=== PATIENT | female | born 1940 | race Caucasian/White ===

== ENCOUNTER → 2017-01-13 | Outpatient (CLI) | payer BC ==
[~2017-01-13] MED LIST: ATEN-173 PO; CHOL100010 PO; CHOL2000 PO; CITA20TA9 PO; HYDR-5688 PO; LEVO75TA25 PO; LEVO75TA5 PO; MULTTAB5 PO; POTA1TAB PO; SIMV80TA2 PO; TRAM-10 PO; TRIATAB3 PO; [UNRECOGNIZED DRUG - OTHER]; [UNRECOGNIZED DRUG - OTHER] PO; centrum silver PO
[2017-01-13 13:00] LABS: BASO % 0.9 %; BASO ABS # 0.06 K/uL (0-0.2); COMPLETE YES; EOS % 1.5 %; HEMATOCRIT 44.3 % (37-47); IG% 0.3 %; LYMPH % 21.3 %; LYMPH ABS # 1.42 K/uL (1.2-3.4); MEAN CELL VOLUME 89.1 fL (80-100); MEAN CORPUSCULAR HGB CONC 33.6 g/dl (32-36); MEAN PLATELET VOLUME 10.6 fL (7.4-10.4); MONO % 7.5 %; NEUT % 68.5 %; PLATELET COUNT 264 K/uL (130-400); RED BLOOD COUNT 4.97 M/uL (4.2-5.4); WHITE BLOOD COUNT 6.66 K/uL (4.8-10.8)
[2017-01-13 13:04] LABS: URINE APPEARANCE CLEAR (CLEAR); URINE BILIRUBIN NEG (NEG); URINE COLOR DK YELLOW; URINE EPITHELIAL CELL AUTO >30 /lpf (0-5); URINE NITRITE NEG (NEG); URINE SPECIFIC GRAVITY 1.018 (1.000-1.030); UROBILINOGEN NEG (NEG); ZZUR CULT IF INDIC CLEAN CATCH NO
[2017-01-13 13:07] LABS: MANUAL MICROSCOPIC REQUIRED? NO; REVIEW REQ? NO
[2017-01-13 13:13] LABS: ALB/GLOB RATIO 1.3 (0.9-2); ALT/SGPT 25 U/L (12-78); AST/SGOT 26 U/L (15-37); BLOOD UREA NITROGEN 25 mg/dl (7-18); BUN/CREATININE RATIO 36.6 (10-20); CALCIUM 11.4 mg/dl (8.5-10.1); CARBON DIOXIDE 29 mmol/L (21-32); CHLORIDE 104 mmol/L (98-107); CHOLESTEROL 185 mg/dl (0-200); CREATININE 0.68 mg/dl (0.60-1.20); GLUCOSE 110 mg/dl (70-99); POTASSIUM 4.5 mmol/L (3.5-5.1); SODIUM 140 mmol/L (136-145)
[2017-01-13 13:23] LABS: ALKALINE PHOSPHATASE 72 U/L (45-117); CHOLESTEROL/HDL RATIO 2.6; HDL CHOLESTEROL 72 mg/dl; LDL CHOLESTEROL CALCULATED 87 mg/dl; TRIGLYCERIDES 131 mg/dl (0-150); VERY LOW DENSITY LIPOPROT CALC 26 mg/dl
[2017-01-13 13:33] LABS: ESTIMATED AVERAGE GLUCOSE 131 mg/dl; HA1C FLAG Normal (Normal)
--- NOTE | 2017-01-19 14:08 | CODING QUERY MEDICAL NECESSITY ---
SUPPORTING DIAGNOSIS NEEDED A supporting diagnosis is required for the test/procedure performed on this patient in order for us to be reimbursed by the patient's insurance. Please provide a supporting diagnosis for the following test/procedure listed below next to the test name along with your signature. *If there is no additional diagnosis for this patient that would support the following test/procedure please document that below next to the test/procedure. Test(s)/Procedure(s) that require a supporting diagnosis: * VITAMIN D 25-HYDROXY DIAGNOSIS: * DOS: 01/13/17 Provider Signature: Date: Thank you Laure Cruz Health Information Management Once completed, please kindly fax back to [phone] For questions please call [phone]
== END | disposition home or self-care (01) ==
LOC: C.LABBFT 08:55
PROVIDERS: ATTEND Internal Medicine
DX: E78.5 Hyperlipidemia, unspecified (principal); E03.9 Hypothyroidism, unspecified; R73.01 Impaired fasting glucose; M85.80 Other specified disorders of bone density and structure, unspecified site

== ENCOUNTER → 2017-01-19 | Outpatient (CLI) | payer BC | END | disposition home or self-care (01) | LOC: C.LABBFT 14:19 | PROVIDERS: ATTEND Physician Assistant Medical | DX: E21.3 Hyperparathyroidism, unspecified (principal) ==

== ENCOUNTER → 2017-05-26 | Outpatient (CLI) | payer BC ==
--- NOTE | 2017-05-27 07:44 | MAMMOGRAPHY REPORT ---
BILATERAL DIGITAL SCREENING MAMMOGRAM TOMOSYNTHESIS WITH CAD: 05/26/2017 CLINICAL HISTORY: Routine screening. Patient has no complaints. TECHNIQUE: Breast tomosynthesis in addition to standard 2D mammography was performed. Current study was also evaluated with a Computer Aided Detection (CAD) system. COMPARISON: Comparison is made to exams dated: 10/26/2015 ultrasound biopsy, 10/26/2015 mammogram, 10/17 ultrasound, 10/17/2015 mammogram, 10/03/2015 mammogram, and 09/28/2014 mammogram - [facility]. BREAST COMPOSITION: The tissue of both breasts is almost entirely fatty. FINDINGS: There is a stable metallic biopsy marker in the far posterior right breast, only seen on t he MLO view. No new suspicious mass, architectural distortion or cluster of microcalcifications is s een. IMPRESSION: ACR BI-RADS CATEGORY 1: NEGATIVE There is no mammographic evidence of malignancy. A 1 year screening mammogram is recommended. The pa tient will receive written notification of the results. Approximately 10% of breast cancers are not detected with mammography. A negative mammographic report should not delay biopsy if a clinically suggestive mass is present. Cyndee Bernal M.D. ay/:05/26/2017 18:26:45 Kitchen Manager: Colleen Cohen, [facility] letter sent: Normal 1/2 BI-RADS Code: ACR BI-RADS Category 1: Negative
== END | disposition home or self-care (01) ==
LOC: C.MAMM 12:53
PROVIDERS: ATTEND Obstetrics & Gynecology
DX: Z12.31 Encounter for screening mammogram for malignant neoplasm of breast (principal)

== ENCOUNTER 2017-06-13 11:26 | Emergency (ER) | payer BC ==
[~2017-06-13] VITALS: Ht 157.5 cm; Wt 84.0 kg
[2017-06-13] VITALS (14 sets, daily range): BP systolic 115–160; BP diastolic 69–102; PULSE 61–81; TEMP 36.5–36.6; O2SAT 91–100; Ht 157.5 cm; Wt 84.0 kg
[~2017-06-13 11:26] MED LIST changes: -CHOL2000 PO; -HYDR-5688 PO; -LEVO75TA5 PO; -MULTTAB5 PO; -POTA1TAB PO
[2017-06-13] MEDS ORDERED: HYDROmorphone INJ 0.5 MG/0.5 ML SYR IV STA (11:36)
[2017-06-13] MEDS ORDERED: ONDANSETRON INJ 2 MG/ML 2 ML VIAL IV STA (11:36)
[2017-06-13] MEDS ORDERED: MoRPHine SULFATE 10 MG/ML CARP/VIAL ONE (11:39)
[2017-06-13] MEDS ORDERED: ONDANSETRON INJ 2 MG/ML 2 ML VIAL ONE (11:40)
--- NOTE | 2017-06-13 11:51 | EMERGENCY ROOM VISIT NOTE ---
ED Visit Note First contact with patient: 11:31 The patient was seen and examined with Shanna Patterson PA-C. I agree with the history, physical and findings. Please see the note for disposition and details. The patient has a right elbow dislocation. I did discuss the case with orthopedics, Dr Johnson. Sedation was necessary as this is a [place] joint. Risks and benefits discussed. The patient had a meal yesterday. She had her last oral intake of fluids 6 hours ago. Reduction by orthopedics. I gave my usual and customary discussion regarding this issue. PROCEDURAL SEDATION: Indication: A [place] elbow dislocation Written consent was obtained after the risks and benefits were explained, including but not limited to allergic reaction, aspiration, airway obstruction, laryngospasm, cardiorespiratory arrest, infection, and hypotension. At this time , the risks of the procedure are less than the risks of NOT performing the procedure. A time out was taken and the correct patient and site identified. The patient was on 100% via NRB prior to the procedure. Suction, airway equipment, RSI drugs, respiratory equipment, and appropriate personnel were prepared prior to the initiation of the procedure. Sedation was achieved utilizing propofol. The patient received a 40 mg bolus and then 4 incremental doses of 10 mg. The main procedure was performed successfully. See nursing notes for dosages and times. There were no complications and the patient recovered uneventfully from the procedure.
[2017-06-13] MEDS ORDERED: POTA1TAB PO (12:00)
[2017-06-13] MEDS ORDERED: MULTTAB5 PO (12:00)
[2017-06-13] MEDS ORDERED: CHOL2000 PO (12:00)
[2017-06-13] MEDS ORDERED: LEVO75TA5 PO (12:00)
[2017-06-13] MEDS ORDERED: HYDROmorphone INJ 1 MG/ML SYR IV STA (12:20)
--- NOTE | 2017-06-13 12:42 | DIAGNOSTIC IMAGING REPORT ---
RIGHT ELBOW 2 VIEWS CLINICAL HISTORY: 76 years-old Female presenting with RIGHT, EVAL FX VS DISLOCATION Right. TECHNIQUE: Frontal and lateral views of the right elbow were obtained. COMPARISON: None. FINDINGS: Evidence of complete dislocation of the elbow joint with posterior and lateral displacement of the olecranon relative to the humeral condyles. Faint ossific fragment adjacent to the radial head may suggest fracture fragment. This may arise from the lateral humeral condyle or epicondyle. Significant regional soft tissue swelling. IMPRESSION: Fracture dislocation of the right elbow. Suspected small fracture fragment arising from the lateral humeral condyle or epicondyle would be better appreciated on CT. Electronically signed by: Jimmie Mccoy M.D. 06/13/2017 12:40 PM Dictated Date/Time: 06/13/2017 12:39 PM
[2017-06-13] MEDS ORDERED: PROPOFOL IV EMULSION 10 MG/ML 20 ML VIAL IV STA (12:55)
--- NOTE | 2017-06-13 13:05 | EMERGENCY ROOM VISIT NOTE ---
Pre-Mod Sedation Assessment General Date of Moderate Sedation: Jun 13, 2017. Vital Signs: Vital Signs Past 12 Hours Date Time Temp Pulse Resp B/P (MAP) Pulse Ox O2 Delivery O2 Flow Rate FiO2 06/13/17 12:42 36.5 81 18 115/84 93 Nasal Cannula 2.0 06/13/17 11:30 36.7 83 18 158/78 100 Room Air Review Cardiovascular: regular rate, rhythm, no edema, no murmur Abdomen: non tender, soft Lungs: lungs clear Pre-Sedation Airway Assessment Oral Cavity: WNL Short Thick Neck: No Hx of Sleep Apnea: Yes Smoking Status: Current Every Day Smoker Mallampati Classification: Class III ASA Classification: Class III Procedure Planning Contraindications-for Mod Sed: None Yes Notes The planned sedation has been discussed with the patient and consent obtained. I have identified the patient, determined the appropriateness of sedation and have assessed the patient immediately prior to the procedure. All medicine(s) and interventions are by my order.
--- NOTE | 2017-06-13 13:54 | DIAGNOSTIC IMAGING REPORT ---
RIGHT ELBOW 2 VIEWS CLINICAL HISTORY: 76 years-old Female presenting with s/p reduction Right. TECHNIQUE: Frontal and lateral views of the right elbow were obtained. COMPARISON: Plain radiographs performed earlier the same day. FINDINGS: Interval reduction of the previous dislocated elbow joint. Normal anatomic alignment has been restored. A tiny ossific fragment is noted immediately distal to the medial epicondyle. The previously noted ossific fragment proximal to the radial head is not apparent. Elbow joint effusion noted. IMPRESSION: Interval reduction of the dislocated elbow. Tiny osseous fragment distal to the lateral epicondyle raises concern for small avulsion fracture. Again, cross-sectional imaging would better demonstrate this. Electronically signed by: Jimmie Mccoy M.D. 06/13/2017 1:52 PM Dictated Date/Time: 06/13/2017 1:51 PM
[2017-06-13] MEDS ORDERED: HYDR-5688 PO (14:01)
--- NOTE | 2017-06-13 14:02 | EMERGENCY ROOM VISIT NOTE ---
ED Visit Note First contact with patient: 11:31 CHIEF COMPLAINT: Right elbow injury 2 hours ago HISTORY OF PRESENT ILLNESS: Patient is a [id number] 76-year-old white female brought to the emergency department by [facility] for evaluation of a right elbow injury. She sustained a mechanical fall in her backyard about 2 hours ago when she tripped over a swing and fell. She tried to catch herself, and had immediate onset of pain and deformity in the right elbow. She has been splinted with the arm extended above her head. She received morphine 10 mg IV en route, with some relief of her pain. She did not strike her head or lose consciousness. She denies any other injuries. She presently rates her pain a 5 /10. She reports that her right hand and fingers feel cold and tingly. She still able to wiggle and move her fingers. REVIEW OF SYSTEMS: Review of systems as per HPI. All other systems reviewed were negative. 10 systems reviewed. PMH: Electronic medical records are reviewed and summarized as above/below. See Problem List. SOCIAL HISTORY: Patient lives at home. Smoker. PHYSICAL EXAM: Vital Signs: Reviewed nurse's notes. CONSTITUTIONAL: Patient is a pleasant, obviously uncomfortable 76-year-old white female who is awake and alert and in moderate distress due to her stated complaint. HEART: Regular rate and rhythm. LUNGS: Clear to auscultation. MUSCULOSKELETAL: Examination of the right upper extremity show an obvious deformity at the right elbow. The arm has been splinted in extension, with the arm flexed above her head. Radial and ulnar pulses are easily palpable. Capillary refills less than 2 seconds. There is a minor superficial abrasion on the dorsal aspect of the wrist, but the wrist is nontender to palpation. There is no anatomic snuffbox tenderness. Any attempts at wrist range of motion causes elbow pain. There is an obvious deformity of the elbow, skin is intact. There is some slight soft tissue swelling and ecchymosis noted. Range of motion of the elbow is not assessed due to the nature of the injury. The upper humerus, shoulder and clavicle are nontender. EMERGENCY DEPARTMENT COURSE: The patient was seen and assessed as above. She was medicated with Zofran 4 mg IV and a total of Dilaudid 1.5 mg IV for pain. Right elbow x-rays were obtained, which confirmed elbow dislocation. Patient was reviewed with Dr. Apodaca, who also independently evaluated her. Orthopedics, Dr. Johnson, was consulted. Close reduction was performed by Dr. Jhonson under conscious sedation performed by Dr. Apodaca. Long arm posterior Ortho-Glass splint and arm sling were applied. Post reduction x-rays confirm reduction of the elbow dislocation. Splint placement was verified by me and was satisfactory. Patient remained neurovascularly intact. Patient was allowed to recover from the conscious sedation per protocol. She was placed in an arm sling. She was reassessed prior to discharge. She rated her arm pain a 2/10. Verbal and written discharge instructions were reviewed with the patient. She will be given a prescription for Veneta for pain. Differential diagnoses entertained included elbow fracture, elbow dislocation, humerus/forearm fracture, and nerve, vascular or tendinous injury, among others. Medication reconciliation: I attest that I have personally reviewed the patient' s current medication list. Blood pressure screening: Patient was found to have a slightly elevated blood pressure due to circumstances. I do not believe that the patient requires hypertension monitoring. Patient was reviewed in the [facility] Prescription Drug Monitoring Program, and there was no record. RIGHT ELBOW 2 VIEWS CLINICAL HISTORY: 76 years-old Female presenting with RIGHT, EVAL FX VS DISLOCATION Right. TECHNIQUE: Frontal and lateral views of the right elbow were obtained. COMPARISON: None. FINDINGS: Evidence of complete dislocation of the elbow joint with posterior and lateral displacement of the olecranon relative to the humeral condyles. Faint ossific fragment adjacent to the radial head may suggest fracture fragment. This may arise from the lateral humeral condyle or epicondyle. Significant regional soft tissue swelling. IMPRESSION: Fracture dislocation of the right elbow. Suspected small fracture fragment arising from the lateral humeral condyle or epicondyle would be better appreciated on CT. RIGHT ELBOW 2 VIEWS CLINICAL HISTORY: 76 years-old Female presenting with s/p reduction Right. TECHNIQUE: Frontal and lateral views of the right elbow were obtained. COMPARISON: Plain radiographs performed earlier the same day. FINDINGS: Interval reduction of the previous dislocated elbow joint. Normal anatomic alignment has been restored. A tiny ossific fragment is noted immediately distal to the medial epicondyle. The previously noted ossific fragment proximal to the radial head is not apparent. Elbow joint effusion noted. IMPRESSION: Interval reduction of the dislocated elbow. Tiny osseous fragment distal to the lateral epicondyle raises concern for small avulsion fracture. Again, cross-sectional imaging would better demonstrate this. Problem List Medical Problems: (1) Anxiety State Nos Status: Chronic (2) Depressive Disorder Nec Status: Chronic (3) Hyperlipidemia, Unspecified Status: Chronic (4) Hypertension Nos Status: Chronic (5) Hypothyroidism, Unspecified Status: Chronic Surgical Problems: (1) Hip Joint Replacement Status Status: Resolved Current/Historical Medications Scheduled Atenolol (Tenormin), 25 MG PO QAM Cholecalciferol (Vitamin D3), 4,000 UNITS PO DAILY Citalopram Hydrobromide (Celexa), 20 MG PO QAM Levothyroxine Sodium (Levothyroxine Sodium), 75 MCG PO DAILY Multiple Vitamins W/ Minerals (Centrum), 1 TAB PO DAILY Potassium Gluconate (Potassium Gluconate), 1 TAB PO DAILY Simvastatin (Zocor), 80 MG PO QPM Triamterene/Hctz (Triamterene/Hctz 37.5-25MG), 1 TAB PO QAM Scheduled PRN Hydrocodone/Acetaminophen 5MG/325MG ([place] 5MG/325MG), 1-2 TABLETS PO Q4 PRN for Pain Allergies Coded Allergies: Adhesives (Verified Allergy, Unknown, ITCHY,RED SKIN WITH RASH, 06/27/13) Lactose Intolerance (Verified Allergy, Unknown, diarrhea, 06/27/13) Penicillin V (Verified Allergy, Unknown, HIVES, 04/26/13) Vital Signs Date Time Temp Pulse Resp B/P (MAP) Pulse Ox O2 Delivery O2 Flow Rate FiO2 06/13/17 15:01 131/88 06/13/17 14:58 70 18 137/80 94 Room Air 06/13/17 14:56 81 15 86 06/13/17 14:52 73 06/13/17 14:46 137/80 06/13/17 14:32 103/72 06/13/17 14:31 49/30 06/13/17 14:30 36.6 71 18 130/81 92 Room Air 06/13/17 14:26 72 15 145/79 06/13/17 14:21 145/83 06/13/17 14:16 141/84 06/13/17 14:15 36.5 75 18 141/84 91 Room Air 2.0 06/13/17 14:11 145/82 06/13/17 14:06 143/78 06/13/17 14:01 137/82 06/13/17 14:00 36.5 74 18 137/82 92 Room Air 06/13/17 13:57 141/81 06/13/17 13:56 79 10 84 06/13/17 13:51 158/75 06/13/17 13:50 36.5 73 18 158/75 93 Nasal Cannula 06/13/17 13:47 153/71 06/13/17 13:45 36.6 73 18 153/71 92 Nasal Cannula 06/13/17 13:41 160/78 06/13/17 13:40 36.6 70 17 160/78 100 Nasal Cannula 2.0 06/13/17 13:39 159/69 06/13/17 13:35 36.6 61 18 151/75 100 Nasal Cannula 2.0 06/13/17 13:31 160/74 06/13/17 13:30 71 17 160/74 100 Non-Rebreather 15.0 06/13/17 13:28 139/102 06/13/17 13:26 77 11 100 06/13/17 13:25 74 16 139/102 100 Non-Rebreather 15.0 06/13/17 13:22 80 18 141/69 100 Non-Rebreather 15.0 06/13/17 13:21 141/69 06/13/17 13:20 136/70 06/13/17 13:20 80 18 141/69 98 Non-Rebreather 06/13/17 13:00 100 Nasal Cannula 2.0 06/13/17 12:56 83 25 95 06/13/17 12:45 115/84 06/13/17 12:26 81 98 06/13/17 11:37 158/78 06/13/17 11:30 36.7 83 18 158/78 100 Room Air Medications Administered Medications (Trade) Dose Ordered Sig/Terrence Route Start Time Stop Time Status Last Admin Dose Admin Hydromorphone HCl (Dilaudid Inj) 0.5 mg NOW STAT IV 06/13/17 11:36 06/13/17 11:38 DC 06/13/17 11:45 0.5 MG Ondansetron HCl (Zofran Inj) 4 mg NOW STAT IV 8/26/17 11:36 06/13/17 11:38 DC 06/13/17 11:44 4 MG Hydromorphone HCl (Dilaudid Inj) 1 mg NOW STAT IV 06/13/17 12:20 06/13/17 12:21 DC 06/13/17 12:32 1 MG Departure Information Impression Primary Impression: Dislocation of right elbow Prescriptions Hydrocodone/Acetaminophen 5MG/325MG (Veneta 5MG/325MG) Tab 1-2 TABLETS PO Q4 Y for Pain, #30 TAB For Initial Treatment Prov: Denise Weber PA 06/13/17 Referrals Linus Hunt M.D. (PCP) Jimmie Johnson M.D. Patient Instructions [facility] Additional Instructions DO NOT drive, drink alcohol, operate machinery, or perform dangerous activities today. You were given medications in the ER that can affect your ability to safely function or operate a vehicle. Hydrocodone/Acetaminophen (Veneta) 5/325 mg: Take 1-2 pills every four hours for breakthrough pain. Avoid alcohol, operating machinery or dangerous equipment, working on ladders or roofs, DRIVING, or situations where being under the influence may be dangerous. It is recommended to use an bkve-uph-cejmhgf stool softener such as Colace, 100mg twice daily while taking this medication to avoid constipation. Ibuprofen(Motrin, Advil) may be used for fever or pain. Use 600mg every six hours as needed. Take with food. Avoid using more than 2400mg in a 24 hour period. Do not use 2400mg per day for more than three consecutive days without physician direction. Prolonged inappropriate use can lead to stomach upset or ulcers. This medication can be taken if you need to drive, work, or perform activities which may be dangerous when taking narcotic pain medication. (AND/OR) Acetaminophen(Tylenol) may be used for fever or pain. Use 1000mg every six hours as needed. Avoid using more than 3000mg in a 24 hour period. This medication can be taken if you need to drive, work, or perform activities which may be dangerous when taking narcotic pain medication. Ice compresses for 20 minutes at a time four times daily for 2-3 days. Use the sling as instructed. Remove your arm from the sling 4-6 times a day and move all the joints around to keep them loose. Rest and elevate your injury. Do not get the splint wet. If your splint feels excessively tight, you have worsening pain, develop numbness or tingling, or your digits appear blue, loosen the brant wrap. Then reapply the brant wrap gently without removing the splint. If your symptoms are not quickly relieved return to the ER for re- evaluation. Continue current medications. Return to the ER immediately for any numbness, tingling, severe pain, extreme swelling in the extremity or as needed. Call [facility] on Thursday to arrange follow up appointment in one week. Problem Qualifiers Primary Impression: Dislocation of right elbow Encounter type: initial encounter Qualified Codes: S53.104A - Unspecified dislocation of right ulnohumeral joint, initial encounter
--- NOTE | 2017-06-13 14:40 | Orthopedic Consultation ---
Orthopedic Consultation Date of Consultation: Jun 13, 2017. Attending Physician: Reason for Consultation: R elbow dislocation History of Present Illness 76 yo female who tripped and fell onto R arm. She had immediate pain and deformity to the R elbow. No neurolgic c/o. No previous injury Past Medical/Surgical History Medical Problems: (1) Anxiety State Nos Status: Chronic (2) Depressive Disorder Nec Status: Chronic (3) Dislocation of right elbow Status: Acute (4) Hyperlipidemia, Unspecified Status: Chronic (5) Hypertension Nos Status: Chronic (6) Hypothyroidism, Unspecified Status: Chronic Social History Smoking Status: Current Every Day Smoker Allergies Coded Allergies: Adhesives (Verified Allergy, Unknown, ITCHY,RED SKIN WITH RASH, 06/27/13) Lactose Intolerance (Verified Allergy, Unknown, diarrhea, 06/27/13) Penicillin V (Verified Allergy, Unknown, HIVES, 04/26/13) Home Medications Scheduled Atenolol (Tenormin), 25 MG PO QAM Cholecalciferol (Vitamin D3), 4,000 UNITS PO DAILY Citalopram Hydrobromide (Celexa), 20 MG PO QAM Levothyroxine Sodium (Levothyroxine Sodium), 75 MCG PO DAILY Multiple Vitamins W/ Minerals (Centrum), 1 TAB PO DAILY Potassium Gluconate (Potassium Gluconate), 1 TAB PO DAILY Simvastatin (Zocor), 80 MG PO QPM Triamterene/Hctz (Triamterene/Hctz 37.5-25MG), 1 TAB PO QAM Scheduled PRN Hydrocodone/Acetaminophen 5MG/325MG ([place] 5MG/325MG), 1-2 TABLETS PO Q4 PRN for Pain Review of Systems Musculoskeletal: + joint pain Physical Exam Date Time Temp Pulse Resp B/P (MAP) Pulse Ox O2 Delivery O2 Flow Rate FiO2 06/13/17 14:30 36.6 71 18 130/81 92 Room Air 06/13/17 14:15 36.5 75 18 141/84 91 Room Air 2.0 06/13/17 14:00 36.5 74 18 137/82 92 Room Air 06/13/17 13:50 36.5 73 18 158/75 93 Nasal Cannula 06/13/17 13:45 36.6 73 18 153/71 92 Nasal Cannula 06/13/17 13:40 36.6 70 17 160/78 100 Nasal Cannula 2.0 06/13/17 13:35 36.6 61 18 151/75 100 Nasal Cannula 2.0 06/13/17 13:30 71 17 160/74 100 Non-Rebreather 15.0 06/13/17 13:25 74 16 139/102 100 Non-Rebreather 15.0 06/13/17 13:22 80 18 141/69 100 Non-Rebreather 15.0 06/13/17 13:20 80 18 141/69 98 Non-Rebreather 06/13/17 13:00 100 Nasal Cannula 2.0 06/13/17 11:30 36.7 83 18 158/78 100 Room Air General Appearance: + mild distress Head: normocephalic Eyes: normal inspection Respiratory/Chest: chest non-tender Cardiovascular: regular rate, rhythm Extremities/Musculoskelatal: + swelling, + pertinent finding (Deformity to R elbow with posterior lateral dislocation, swelling, bruising, no open wounds, distally NVI) Assessment & Plan R elbow posterior/lateral dislocation Given moderate sedation per ED staff Elbow reduced, posterior splint placed. F/U 1 week in my office for xrays in splint
--- NOTE | 2017-06-13 15:11 | [facility] Operative Report ---
Operative Report Operative Date Jun 13, 2017. Pre-Operative Diagnosis Right elbow dislocation Post-Operative Diagnosis Same Procedure(s) Performed Closed reduction right elbow Surgeon Dr. MAGALLANES Public Speaking Teacher Surgeon(s) none Estimated Blood Loss none Findings As above Drains none Anesthesia moderate sedation Complication(s) None Disposition ED Indications 76-year-old female who sustained a fall to the right arm. She had a posterior lateral dislocation right elbow. She wishes to proceed with closed reduction. Description of Procedure Risks benefits and alternatives to the procedure were discussed including but not limited to pain, stiffness, fracture, failure to achieve reduction, need for later surgery, damage to blood vessels, damage to nerves, risks of the anesthesia were discussed and they wished to proceed. The patient was identified. The laterality was confirmed. The patient was given sedation. Once they were properly sedated I performed a closed reduction pulling traction and bringing the arm into slight flexion. There was a palpable and audible clunk. The elbow was then able to be more normally ranged. Post reduction x-rays were obtained and demonstrated adequate reduction of the elbow dislocation. I attest to the content of the Intraoperative Record and any orders documented therein. Any exceptions are noted below.
--- NOTE | 2017-06-13 16:55 | EMERGENCY ROOM VISIT NOTE ---
Post-Moderate Sedation Plan General Date of Moderate Sedation Jun 13, 2017. Vital Signs: Vital Signs Past 12 Hours Date Time Temp Pulse Resp B/P (MAP) Pulse Ox O2 Delivery O2 Flow Rate FiO2 06/13/17 15:01 131/88 06/13/17 14:58 70 18 137/80 94 Room Air 06/13/17 14:56 81 15 86 06/13/17 14:52 73 06/13/17 14:46 137/80 06/13/17 14:32 103/72 06/13/17 14:31 49/30 06/13/17 14:30 36.6 71 18 130/81 92 Room Air 06/13/17 14:26 72 15 145/79 06/13/17 14:21 145/83 06/13/17 14:16 141/84 06/13/17 14:15 36.5 75 18 141/84 91 Room Air 2.0 06/13/17 14:11 145/82 06/13/17 14:06 143/78 06/13/17 14:01 137/82 06/13/17 14:00 36.5 74 18 137/82 92 Room Air 06/13/17 13:57 141/81 06/13/17 13:56 79 10 84 06/13/17 13:51 158/75 06/13/17 13:50 36.5 73 18 158/75 93 Nasal Cannula 06/13/17 13:47 153/71 06/13/17 13:45 36.6 73 18 153/71 92 Nasal Cannula 06/13/17 13:41 160/78 06/13/17 13:40 36.6 70 17 160/78 100 Nasal Cannula 2.0 06/13/17 13:39 159/69 06/13/17 13:35 36.6 61 18 151/75 100 Nasal Cannula 2.0 06/13/17 13:31 160/74 06/13/17 13:30 71 17 160/74 100 Non-Rebreather 15.0 06/13/17 13:28 139/102 06/13/17 13:26 77 11 100 06/13/17 13:25 74 16 139/102 100 Non-Rebreather 15.0 06/13/17 13:22 80 18 141/69 100 Non-Rebreather 15.0 06/13/17 13:21 141/69 8/26/17 13:20 136/70 06/13/17 13:20 80 18 141/69 98 Non-Rebreather 06/13/17 13:00 100 Nasal Cannula 2.0 06/13/17 12:56 83 25 95 06/13/17 12:45 115/84 06/13/17 12:26 81 98 06/13/17 11:37 158/78 06/13/17 11:30 36.7 83 18 158/78 100 Room Air Review - Discharge Plan Post Moderate Sedation Plan: On clinical assessment, the patient appears to have tolerated the Procedural sedation without complications. Patient has recovered as anticipated. The patient was monitored by nursing staff in the standard fashion. No issues and she had an uneventful recovery.
== END 2017-06-13 15:32 | disposition home or self-care (01) ==
LOC: C.EDA 11:26 → EDBD 11:26 → C.EDA 15:32
DX: S53.104A Unspecified dislocation of right ulnohumeral joint, initial encounter (principal); W01.0XXA Fall on same level from slipping, tripping and stumbling without subsequent striking against object, initial encounter; Y92.017 Garden or yard in single-family (private) house as the place of occurrence of the external cause; F17.200 Nicotine dependence, unspecified, uncomplicated; S60.811A Abrasion of right wrist, initial encounter; F41.9 Anxiety disorder, unspecified; F32.9 Major depressive disorder, single episode, unspecified; E78.5 Hyperlipidemia, unspecified; I10 Essential (primary) hypertension; E03.9 Hypothyroidism, unspecified; Z96.649 Presence of unspecified artificial hip joint

== ENCOUNTER → 2017-07-21 | Outpatient (CLI) | payer BC ==
[~2017-07-21] MED LIST changes: -CHOL100010 PO; +CHOL2000 PO; +HYDR-5688 PO; -LEVO75TA25 PO; +LEVO75TA5 PO; +MULTTAB5 PO; +POTA1TAB PO; -TRAM-10 PO; -[UNRECOGNIZED DRUG - OTHER]; -[UNRECOGNIZED DRUG - OTHER] PO; -centrum silver PO
[2017-07-21 12:59] LABS: ALT/SGPT 27 U/L (12-78); BLOOD UREA NITROGEN 18 mg/dl (7-18); BUN/CREATININE RATIO 26.1 (10-20); CALCIUM 11.2 mg/dl (8.5-10.1); CARBON DIOXIDE 26 mmol/L (21-32); CHLORIDE 101 mmol/L (98-107); CHOLESTEROL 175 mg/dl (0-200); CREATININE 0.69 mg/dl (0.60-1.20); GLUCOSE 117 mg/dl (70-99); POTASSIUM 4.2 mmol/L (3.5-5.1); SODIUM 137 mmol/L (136-145)
[2017-07-21 13:09] LABS: ALB/GLOB RATIO 1.2 (0.9-2); ALKALINE PHOSPHATASE 78 U/L (45-117); AST/SGOT 27 U/L (15-37); CHOLESTEROL/HDL RATIO 2.5; HDL CHOLESTEROL 69 mg/dl; LDL CHOLESTEROL CALCULATED 80 mg/dl; TRIGLYCERIDES 132 mg/dl (0-150); VERY LOW DENSITY LIPOPROT CALC 26 mg/dl
== END | disposition home or self-care (01) ==
LOC: C.LABBFT 10:24
PROVIDERS: ATTEND Physician Assistant Medical
DX: E78.5 Hyperlipidemia, unspecified (principal); E03.9 Hypothyroidism, unspecified; R73.01 Impaired fasting glucose

== ENCOUNTER → 2017-07-27 | Outpatient (CLI) | payer BC ==
--- NOTE | 2017-07-27 16:04 | DIAGNOSTIC IMAGING REPORT ---
RIGHT UPPER EXTREMITY VENOUS DOPPLER HISTORY: Right arm pain. COMPARISON STUDY: None. FINDINGS: The right internal jugular vein is patent. There is normal flow within the right subclavian vein. There is normal flow and compressibility within the right axillary, basilic, brachial, radial, ulnar, and visualized cephalic veins. IMPRESSION: No DVT within the right upper extremity. Electronically signed by: Sid Hliario M.D. 07/27/2017 4:02 PM Dictated Date/Time: 07/27/2017 4:02 PM
== END | disposition home or self-care (01) ==
LOC: C.ULTR 15:26
PROVIDERS: ATTEND Internal Medicine
DX: M79.603 Pain in arm, unspecified (principal)

== ENCOUNTER → 2017-08-04 | Outpatient (CLI) | payer BC ==
--- NOTE | 2017-08-04 14:12 | DIAGNOSTIC IMAGING REPORT ---
CT LUNG SCREENING, LOW DOSE WITH COMPUTER-AIDED DETECTION (CAD) CLINICAL HISTORY: Smoking history. Lung cancer screening. COMPARISON STUDY: Chest x-ray dated 10/30/2012. Chest CT dated 12/23/2013. CT DOSE: 79.68 mGy.cm TECHNIQUE: Low-dose helical CT was acquired without intravenous contrast from lung apices to bases and reconstructed at 2.5 mm every 2 mm. CAD was utilized for this study. A dose lowering technique was utilized adhering to the principles of ALARA. FINDINGS: Thyroid: Atrophic Thoracic aorta: There is mild atherosclerotic calcification of the thoracic aorta, which is normal in caliber and demonstrates 4- vessel very arch anatomy. Heart: The heart is enlarged and without pericardial effusion. The coronary arteries are densely calcified. Lungs and pleural spaces: Emphysematous change is noted and there is biapical scarring. No airspace consolidation or pleural effusion is identified. The trachea and central airways are clear. There are scattered calcified granulomas. A 4 mm focus of nodular pleural thickening in the right middle lobe along the minor fissure is seen on image #138. This is unchanged from 2014 and of doubtful significance. No concerning pulmonary lesion is seen. Mediastinum: There is no mediastinal lymphadenopathy. Jenna: Not well assessed without IV contrast. Axilla: Clear. Upper abdomen: Partially visualized upper abdominal viscera is within normal limits. Skeletal structures: The skeletal structures are osteopenic. Degenerative change and mild hyperkyphosis are noted in the thoracic spine. There are no lytic or blastic osseous lesions. IMPRESSION: 1. Cardiomegaly and emphysema. 2. There is no airspace consolidation or pleural effusion. 3. No concerning pulmonary lesion is identified. 4. A perifissural nodule in the right middle lobe measures 4 mm and has been present dating back to 2013. This is of doubtful significance. Nodule 1 Category: 2 Nodule 1 Status: Baseline Nodule 1 Description: Perifissural Nodule 1 Lesion ID: 1 Nodule 1 Slice Number: 70 Nodule 1 Volume (mm3): 42 Nodule 1 Major [place] mm: 5.8 Nodule 1 Minor [place] mm: 3.5 CAD FINDINGS: Overall Lung RADS Category: 2 Lung RADS Management Recommendation: Lung-RADS 2: Continue annual screening in 12 months. Lung RADS Follow Up Date: 2018-08-04 Lung RADS Nodule ID: 1 Electronically signed by: Andrew Edmond M.D. 08/04/2017 2:11 PM Dictated Date/Time: 08/04/2017 1:59 PM
== END | disposition home or self-care (01) ==
LOC: C.CTS 13:46
PROVIDERS: ATTEND Internal Medicine
DX: Z87.891 Personal history of nicotine dependence (principal); I51.7 Cardiomegaly; J43.9 Emphysema, unspecified; R91.1 Solitary pulmonary nodule

== ENCOUNTER → 2017-09-14 | Outpatient (CLI) | payer BC ==
[2017-09-14 11:05] LABS: CALCIUM URINE 20.8 mg/dl; CREATININE, URINE 51.4 mg/dl
== END | disposition home or self-care (01) ==
LOC: C.LAB1850 09:04
PROVIDERS: ATTEND Internal Medicine Endocrinology, Diabetes & Metabolism
DX: E21.0 Primary hyperparathyroidism (principal)

== ENCOUNTER → 2017-09-14 | Outpatient (CLI) | payer BC ==
--- NOTE | 2017-09-14 21:00 | DIAGNOSTIC IMAGING REPORT ---
PARATHYROID IMAGING CLINICAL HISTORY: 76 years-old Female presenting with HYPERPARATHYROIDISM, low energy, weight gain. TECHNIQUE: Nuclear parathyroid uptake and scan is performed following the intravenous administration of 22 mCi of Tc-99m sestamibi. SPECT imaging was acquired at 15 minutes and 3 hours. COMPARISON: None. FINDINGS: Initial 15 minute imaging demonstrates normal radiotracer distribution within the parotid glands, submandibular glands, thyroid, and left ventricle. Markers project over the base of the tongue and thyroid isthmus. Minimal focal activity along the inferior pole of the right thyroid lobe suggested. On delayed imaging, persistent expected uptake in the parathyroid glands, submandibular glands, and left ventricle. Expected washout of the thyroid parenchyma also noted. In no persistent activity at the inferior pole of the right thyroid lobe to suggest a parathyroid adenoma or atypical thyroid adenoma. IMPRESSION: 1. No convincing evidence of a parathyroid adenoma given the absence of radiotracer activity in the expected region of the parathyroid glands on delayed imaging. Electronically signed by: Jimmie Mccoy M.D. 09/14/2017 8:59 PM Dictated Date/Time: 09/14/2017 8:32 PM
== END | disposition home or self-care (01) ==
LOC: C.NUCL 15:57
PROVIDERS: ATTEND Internal Medicine Endocrinology, Diabetes & Metabolism
DX: E21.3 Hyperparathyroidism, unspecified (principal)

== ENCOUNTER → 2017-12-25 | Outpatient (CLI) | payer BC ==
[~2017-12-25] MED LIST changes: -HYDR-5688 PO
[2017-12-25 12:36] LABS: BLOOD UREA NITROGEN 31 mg/dl (7-18); CALCIUM 10.7 mg/dl (8.5-10.1); CARBON DIOXIDE 28 mmol/L (21-32); CREATININE 0.75 mg/dl (0.60-1.20); GLUCOSE 112 mg/dl (70-99); POTASSIUM 4.6 mmol/L (3.5-5.1); SODIUM 135 mmol/L (136-145)
[2017-12-25 12:40] LABS: HEMOGLOBIN A1C 6.3 % (4.5-5.6)
== END | disposition home or self-care (01) ==
LOC: C.LABBFT 10:16
PROVIDERS: ATTEND Internal Medicine
DX: R73.01 Impaired fasting glucose (principal); E03.9 Hypothyroidism, unspecified

== ENCOUNTER → 2018-01-28 | Outpatient (CLI) | payer BC ==
[2018-01-28 09:57] LABS: BLOOD UREA NITROGEN 23 mg/dl (7-18); CALCIUM 10.4 mg/dl (8.5-10.1); CARBON DIOXIDE 29 mmol/L (21-32); CREATININE 0.74 mg/dl (0.60-1.20); GLUCOSE 88 mg/dl (70-99); POTASSIUM 3.9 mmol/L (3.5-5.1); SODIUM 136 mmol/L (136-145)
== END | disposition home or self-care (01) ==
LOC: C.LAB 16:47
PROVIDERS: ATTEND Physician Assistant Medical
DX: E83.52 Hypercalcemia (principal); E03.9 Hypothyroidism, unspecified

== ENCOUNTER → 2018-02-25 | Outpatient (CLI) | payer BC ==
[2018-02-25 09:27] LABS: BLOOD UREA NITROGEN 22 mg/dl (7-18); CARBON DIOXIDE 29 mmol/L (21-32); CREATININE 0.88 mg/dl (0.60-1.20); GLUCOSE 104 mg/dl (70-99); POTASSIUM 4.3 mmol/L (3.5-5.1); SODIUM 138 mmol/L (136-145)
== END | disposition home or self-care (01) ==
LOC: C.LABSPEC 10:11
PROVIDERS: ATTEND Physician Assistant Medical
DX: E83.52 Hypercalcemia (principal)

== ENCOUNTER 2022-05-28 07:36 | Observation (INO) ==
[2022-05-28] MEDS ORDERED: ACETAMINOPHEN 500 MG TAB PO STA (08:29)
[2022-05-28 08:33] LABS: Basophils # (auto) 0.06 K/uL (0-0.2); Basophils % (auto) 0.8 %; Eosinophils # (auto) 0.12 K/uL (0-0.50); Eosinophils % (auto) 1.7 %; Hematocrit (blood only) 48.2 % (34.1-44.9); Hemoglobin 15.5 g/dl (12.0-16.0); Immature Granulocytes # (auto) 0.01 K/uL (0.00-0.02); Immature Granulocytes % (auto) 0.1 %; Lymphocytes # (auto) 0.94 K/uL (1.2-3.4); Lymphocytes % (auto) 13.3 %; Mean Corpuscular Hemoglobin 29.1 pg (25.0-34.0); Mean Corpuscular Hgb Conc 32.2 g/dL (32.0-36.0); Mean Corpuscular Volume 90.4 fL (80.0-100.0); Mean Platelet Volume 10.4 fL (9.4-12.3); Monocytes # (auto) 0.62 K/uL (0.24-0.82); Monocytes % (auto) 8.8 %; Neutrophils # (auto) 5.32 K/uL (1.4-6.5); Neutrophils % (auto) 75.3 %; Platelet Count 235 K/uL (130-400); RDW Coefficient of Variation 12.4 % (11.5-14.5); RDW Standard Deviation 41.1 fL (36.4-46.3); Red Blood Count 5.33 M/uL (3.93-5.22); White Blood Count 7.07 K/ul (4.8-10.8)
[2022-05-28 08:46] LABS: Partial Thromboplastin Ratio 0.9; Partial Thromboplastin Time 25.9 Seconds (21.0-31.0); Prothrombin Time 10.5 Seconds (9.0-12.0)
--- NOTE | 2022-05-28 09:07 | XRay Report ---
XR knee LT 3V CLINICAL HISTORY: pain, fall COMPARISON: Leg length study September 12, 2013. FINDINGS: Note is made of an acute minimally distracted fracture through the inferior aspect of the patella shown on lateral projection. There is a small joint effusion. No additional acute fractures a re present. No osseous lesions are noted. Moderate vascular calcification is incidentally noted. Pre and infrapatellar soft tissue swelling is present. IMPRESSION: 1. Acute minimally distracted fracture through the inferior aspect of the patella. 2. Small left knee joint effusion. Pre and infrapatellar soft tissue swelling. ACT 112: Negative or not required by law. Electronically signed by: Lauri Quiñonez M.D. 05/28/2022 9:06 AM
--- NOTE | 2022-05-28 09:10 | XRay Report ---
XR chest 1V portable CLINICAL HISTORY: ?syncope TECHNIQUE: Single frontal radiograph of the chest was obtained. Comparison: Comparison is made to chest radiograph 06/04/2021 FINDINGS: No lines and tubes are seen. Cardiomegaly is noted. The aortic arch is calcified. The lungs are clear . No evidence of pleural effusion or pneumothorax. IMPRESSION: Very minimally without acute abnormality. ACT 112: Negative or not required by law. Electronically signed by: Aston Gay M.D. 05/28/2022 9:08 AM
[2022-05-28 09:12] LABS: Troponin I High Sensitivity 12.1 pg/ml (0-14)
[2022-05-28 09:16] LABS: Alanine Aminotransferase 16 U/L (7-52); Albumin Globulin Ratio 1.8 (0.9-2); Albumin Level 4.9 gm/dl (3.4-5.0); Alkaline Phosphatase 65 U/L (34-104); Anion Gap 9 (3-11); Aspartate Aminotransferase 25 U/L (13-39); BUN Creatinine Ratio 23.5 (10-20); Bilirubin,Total 0.8 mg/dl (0.2-1.0); Blood Urea Nitrogen 16 mg/dl (6-23); Calcium 10.5 mg/dl (8.5-10.1); Carbon Dioxide 28 mmol/L (21-32); Chloride 101 mmol/L (98-107); Est GFR (African American) 96.4 ml/min; Est GFR (Non-African American) 83.2 ml/min; Globulin 2.8 gm/dl (2.5-4.0); Glucose 102 mg/dl (70-99(Fasting)); Magnesium 1.8 mg/dl (1.7-2.4); Sodium 138 mmol/L (136-145); Total Protein 7.7 gm/dl (6.0-8.3)
--- NOTE | 2022-05-28 09:19 | Emergency Department Note ---
Impression & Plan Fracture of lateral epicondyle of right humerus, Closed fracture of left patella, Fracture of nasal bone, Fall, Syncope Past Med/Surg History Medical History Depression Hearing loss Hyperlipemia Hypertension Hypothyroidism Impaired fasting glucose Lactase deficiency Osteopenia Primary hyperparathyroidism Solitary pulmonary nodule Uses hearing aid Vitamin D deficiency Surgical History History of colonoscopy History of total hip replacement (2012) Family History Father Diabetes Hypertension Myocardial infarction Mother Diabetes Hypertension Congestive heart failure Other Stroke Denies family history of Ovarian cancer Prostate cancer Breast cancer Colorectal cancer Social History Smoking Status: Current some day smoker Tobacco Type: Cigarettes Age Started Using Tobacco: 17; Age Quit Using Tobacco: 78; packs per day: 0.5; Years Smoked: 61; Cigarettes Per Day: 2-3 cigarettes every 3-4 days; Second Hand Exposure: No; Hx Alcohol Use: No Hx Substance Use: No Preferred Language: Swedish Communication Ability: Effective Hearing Ability: Use of Hearing Aid Senior Climate Advisor Required: No Beliefs That Will Affect Care: None marital status: Current Living Situation: Family Current Living Situation Comment: Daughter current occupational status: retired Feels Safe at Home: Yes Childhood Exposure to Second-Hand Smoke: Yes caffeine: Yes (3c coffee daily) Dental Care, Regularly: Yes Physical Activity Frequency: Does not Exercise Seatbelt Use: always Sunscreen Use: Yes Assistive Devices: Cane and Walker Allergies Allergies Allergy/AdvReac Type Severity Reaction Status Date / Time adhesive Allergy Unknown ITCHY,RED Verified 05/28/22 15:34 SKIN WITH RASH lactose Allergy Unknown diarrhea Verified 05/28/22 15:34 penicillin V Allergy Unknown HIVES Verified 05/28/22 15:34 Home Meds Home Medications Medication Instructions Recorded Confirmed hvcrsjac-[id number] acid 0.4 1 tab PO DAILY 07/11/19 05/28/22 mg-lycopene 300 mcg-lutein 250 mcg tablet (Centrum Silver) Previous Rx's Medication Instructions Recorded cholecalciferol (vitamin D3) 50 4,000 units PO DAILY #30 caps 08/08/19 mcg (2,000 unit) capsule albuterol sulfate 90 mcg/actuation 2 puff inhalation Q6H PRN 05/22/21 aerosol inhaler (Ventolin HFA) shortness of breath or wheezing #8.5 grams citalopram 20 mg tablet 30 mg PO DAILY #135 tabs 05/30/21 aspirin 325 mg tablet 325 mg PO DAILY #30 tabs 06/11/21 levothyroxine 75 mcg tablet 75 mcg PO DAILY #90 tabs 06/20/21 simvastatin 80 mg tablet 80 mg PO HS #90 tabs 06/20/21 spironolactone 25 mg tablet 25 mg PO DAILY #90 tabs 09/02/21 alendronate 35 mg tablet 35 mg PO .COMPLEX #4 tabs 03/31/22 acetaminophen 325 mg tablet 650 mg PO Q4H PRN pain #60 tabs 06/02/22 enoxaparin 40 mg/0.4 mL 40 mg (0.4 mL) subcut QAM 9 days 06/02/22 subcutaneous syringe (Lovenox) #3.6 mL lisinopril 10 mg tablet 10 mg PO BID #60 tabs 06/02/22 Results & Data (ED) Vital Signs Vital Signs - 24 hr 05/28/22 07:40 05/28/22 07:37 05/28/22 08:14 Temperature 36.9 C Temperature Source Temporal Artery Scan Pulse Rate 81 56 L Pulse Rhythm Regular Regular Pulse Strength Normal Respiratory Rate 20 16 16 Respiratory Effort / Characteristics Non-Labored Spontaneous Non-Labored Respiratory Depth Normal Normal Respiratory Pattern Regular Regular Blood Pressure 150/87 H Blood Pressure [Left Arm] 166/85 H Blood Pressure Mean 108 Blood Pressure Mean [Left Arm] 112 Blood Pressure Position Sitting Blood Pressure Position [Left Arm] Lying Pulse Oximetry 96 95 94 Oxygen Delivery Method Room Air Room Air Room Air Sepsis Recent Fever Within 48 Hours No Sepsis New/Unexplained Change in Mental Status N/A Sepsis Action Taken by Nursing No Action Required Laboratory Data Result diagrams: 05/31/22 05:10 05/31/22 05:10 Lab Results 05/28/22 05/28/22 05/28/22 Range/Units 08:09 08:09 08:09 WBC 7.07 (4.8-10.8) K/ul RBC 5.33 H (3.93-5.22) M/uL Hgb 15.5 (12.0-16.0) g/dl Hct 48.2 H (34.1-44.9) % MCV 90.4 (80.0-100.0) fL MCH 29.1 (25.0-34.0) pg MCHC 32.2 (32.0-36.0) g/dL RDW Std Deviation 41.1 (36.4-46.3) fL RDW Coeff of [place] 12.4 (11.5-14.5) % Plt Count 235 (130-400) K/uL MPV 10.4 (9.4-12.3) fL Immature Gran % (Auto) 0.1 % Neut % (Auto) 75.3 % Lymph % (Auto) 13.3 % [place] % (Auto) 8.8 % Eos % (Auto) 1.7 % Baso % (Auto) 0.8 % Neut # (Auto) 5.32 (1.4-6.5) K/uL Lymph # (Auto) 0.94 L (1.2-3.4) K/uL [place] # (Auto) 0.62 (0.24-0.82) K/uL Eos # (Auto) 0.12 (0-0.50) K/uL Baso # (Auto) 0.06 (0-0.2) K/uL Immature Gran # (Auto) 0.01 (0.00-0.02) K/uL PT 10.5 (9.0-12.0) Seconds INR 1.0 (0.9-1.1) APTT 25.9 (21.0-31.0) Seconds PTT Ratio 0.9 Sodium 138 (136-145) mmol/L Potassium 4.0 (3.5-5.1) mmol/L Chloride 101 (98-107) mmol/L Carbon Dioxide 28 (21-32) mmol/L Anion Gap 9 (3-11) BUN 16 (6-23) mg/dl Creatinine 0.68 (0.6-1.2) mg/dl Est Cr Clr Drug Dosing Not Reportable Est GFR ( Amer) 96.4 ml/min Est GFR (Non-Af Amer) 83.2 ml/min BUN/Creatinine Ratio 23.5 H (10-20) Glucose 102 H (70-99(Fasting)) mg/dl Calcium 10.5 H (8.5-10.1) mg/dl Magnesium 1.8 (1.7-2.4) mg/dl Total Bilirubin 0.8 (0.2-1.0) mg/dl AST 25 (13-39) U/L ALT 16 (7-52) U/L Alkaline Phosphatase 65 (34-104) U/L Troponin I High Sens 12.1 (0-14) pg/ml Total Protein 7.7 (6.0-8.3) gm/dl Albumin 4.9 (3.4-5.0) gm/dl Globulin 2.8 (2.5-4.0) gm/dl Albumin/Globulin Ratio 1.8 (0.9-2) TSH (0.300-4.500) uIu/ml Urine Color Urine Appearance (Clear) Urine pH (4.5-7.5) Ur Specific [place] (1.000-1.030) Urine Protein (Negative) Urine Glucose (UA) (Negative) Urine Ketones (Negative) Urine Blood (Negative) Urine Nitrite (Negative) Urine Bilirubin (Negative) Urine Urobilinogen (Negative) Ur Leukocyte Esterase (Negative) Urine WBC (Auto) (0-5) /hpf Urine RBC (Auto) (0-4) /hpf U Hyaline Cast (Auto) (0-5) /lpf U Epithel Cells (Auto) (0-5) /lpf Urine Bacteria (Auto) (Negative) SARS-CoV-2, RNA, NAAT (NEGATIVE) 05/28/22 05/28/22 05/28/22 Range/Units 08:09 11:40 13:40 WBC (4.8-10.8) K/ul RBC (3.93-5.22) M/uL Hgb (12.0-16.0) g/dl Hct (34.1-44.9) % MCV (80.0-100.0) fL MCH (25.0-34.0) pg MCHC (32.0-36.0) g/dL RDW Std Deviation (36.4-46.3) fL RDW Coeff of [place] (11.5-14.5) % Plt Count (130-400) K/uL MPV (9.4-12.3) fL Immature Gran % (Auto) % Neut % (Auto) % Lymph % (Auto) % [place] % (Auto) % Eos % (Auto) % Baso % (Auto) % Neut # (Auto) (1.4-6.5) K/uL Lymph # (Auto) (1.2-3.4) K/uL [place] # (Auto) (0.24-0.82) K/uL Eos # (Auto) (0-0.50) K/uL Baso # (Auto) (0-0.2) K/uL Immature Gran # (Auto) (0.00-0.02) K/uL PT (9.0-12.0) Seconds INR (0.9-1.1) APTT (21.0-31.0) Seconds PTT Ratio Sodium (136-145) mmol/L Potassium (3.5-5.1) mmol/L Chloride (98-107) mmol/L Carbon Dioxide (21-32) mmol/L Anion Gap (3-11) BUN (6-23) mg/dl Creatinine (0.6-1.2) mg/dl Est Cr Clr Drug Dosing Est GFR ( Amer) ml/min Est GFR (Non-Af Amer) ml/min BUN/Creatinine Ratio (10-20) Glucose (70-99(Fasting)) mg/dl Calcium (8.5-10.1) mg/dl Magnesium (1.7-2.4) mg/dl Total Bilirubin (0.2-1.0) mg/dl AST (13-39) U/L ALT (7-52) U/L Alkaline Phosphatase (34-104) U/L Troponin I High Sens (0-14) pg/ml Total Protein (6.0-8.3) gm/dl Albumin (3.4-5.0) gm/dl Globulin (2.5-4.0) gm/dl Albumin/Globulin Ratio (0.9-2) TSH 0.711 (0.300-4.500) uIu/ml Urine Color Yellow Urine Appearance Clear (Clear) Urine pH 5.5 (4.5-7.5) Ur Specific [place] 1.011 (1.000-1.030) Urine Protein Negative (Negative) Urine Glucose (UA) Negative (Negative) Urine Ketones 1+ H (Negative) Urine Blood Negative (Negative) Urine Nitrite Negative (Negative) Urine Bilirubin Negative (Negative) Urine Urobilinogen Negative (Negative) Ur Leukocyte Esterase Trace H (Negative) Urine WBC (Auto) 1-5 (0-5) /hpf Urine RBC (Auto) 0-4 (0-4) /hpf U Hyaline Cast (Auto) 1-5 (0-5) /lpf U Epithel Cells (Auto) >30 H (0-5) /lpf Urine Bacteria (Auto) 1+ H (Negative) SARS-CoV-2, RNA, NAAT NEGATIVE (NEGATIVE) Administered Medications Discontinued Medications Acetaminophen (Acetaminophen 500 Mg Tab) 1,000 mg PO NOW STA Stop: 05/28/22 08:30 Last Admin: 05/28/22 09:11 Dose: 1,000 mg Documented By: PEYTON Acetaminophen (Acetaminophen 325 Mg Tab) 650 mg PO Q4H PRN PRN Reason: Pain or Fever Stop: 06/27/22 16:43 Last Admin: 06/02/22 08:31 Dose: 650 mg Documented By: Admin: 06/01/22 21:46 Dose: 650 mg Documented By: Admin: 05/31/22 21:13 Dose: 650 mg Documented By: Admin: 05/31/22 02:24 Dose: 650 mg Documented By: Admin: 05/30/22 06:08 Dose: 650 mg Documented By: Admin: 05/29/22 19:19 Dose: 650 mg Documented By: HODAN Aspirin (Aspirin 81 Mg Ectab) 81 mg PO QAM CRYS Stop: 06/28/22 08:59 Last Admin: 06/02/22 08:28 Dose: 81 mg Documented By: Admin: 06/01/22 08:49 Dose: 81 mg Documented By: Admin: 05/31/22 08:20 Dose: 81 mg Documented By: Admin: 05/30/22 09:09 Dose: 81 mg Documented By: Admin: 05/29/22 08:49 Dose: 81 mg Documented By: HODAN Citalopram Hydrobromide (Citalopram 20 Mg Tab) 30 mg PO DAILY CRYS Stop: 06/28/22 08:59 Last Admin: 06/02/22 08:28 Dose: 30 mg Documented By: Admin: 06/01/22 08:49 Dose: 30 mg Documented By: Admin: 05/31/22 08:20 Dose: 30 mg Documented By: Admin: 05/30/22 09:09 Dose: 30 mg Documented By: Admin: 05/29/22 08:49 Dose: 30 mg Documented By: HODAN Enoxaparin Sodium (Enoxaparin Inj 40 Mg/0.4 Ml Syr) 40 mg SQ QAM CRYS Stop: 06/28/22 09:44 Last Admin: 06/02/22 08:28 Dose: 40 mg Documented By: Admin: 06/01/22 08:49 Dose: 40 mg Documented By: Admin: 05/31/22 08:21 Dose: 40 mg Documented By: Admin: 05/30/22 09:12 Dose: 40 mg Documented By: Admin: 05/29/22 13:20 Dose: 40 mg Documented By: HODAN Levothyroxine Sodium (Levothyroxine Sodium 75 Mcg Tablet) 75 mcg PO DAILY[facility] Stop: 06/28/22 06:29 Last Admin: 06/02/22 06:11 Dose: 75 mcg Documented By: Admin: 06/01/22 05:44 Dose: 75 mcg Documented By: Admin: 05/31/22 05:33 Dose: 75 mcg Documented By: Admin: 05/30/22 05:55 Dose: 75 mcg Documented By: Admin: 05/29/22 05:42 Dose: 75 mcg Documented By: BLANCHE Lisinopril (Lisinopril 10 Mg Tab) 10 mg PO BID CRYS Stop: 06/27/22 20:59 Last Admin: 06/02/22 08:28 Dose: 10 mg Documented By: Admin: 06/01/22 21:44 Dose: 10 mg Documented By: Admin: 06/01/22 08:50 Dose: 10 mg Documented By: Admin: 05/31/22 21:06 Dose: 10 mg Documented By: Admin: 05/31/22 08:20 Dose: 10 mg Documented By: Admin: 05/30/22 21:13 Dose: 10 mg Documented By: Admin: 05/30/22 09:09 Dose: 10 mg Documented By: Admin: 05/29/22 21:44 Dose: 10 mg Documented By: Admin: 05/29/22 08:50 Dose: 10 mg Documented By: Admin: 05/28/22 20:39 Dose: 10 mg Documented By: BLANCHE Miscellaneous (Alendronate- Order Awaiting Action) 1 each N/A QS CRYS Stop: 06/28/22 00:00 Last Admin: 06/02/22 15:25 Dose: Not Given Documented By: Admin: 06/02/22 07:43 Dose: Not Given Documented By: Admin: 06/02/22 00:01 Dose: Not Given Documented By: Admin: 06/01/22 16:22 Dose: Not Given Documented By: RRElisa Admin: 06/01/22 08:45 Dose: Not Given Documented By: Admin: 05/31/22 21:07 Dose: Not Given Documented By: Admin: 05/31/22 18:35 Dose: Not Given Documented By: Admin: 05/31/22 08:19 Dose: Not Given Documented By: Admin: 05/30/22 21:16 Dose: Not Given Documented By: Admin: 05/30/22 15:43 Dose: Not Given Documented By: Admin: 05/30/22 09:06 Dose: Not Given Documented By: Admin: 05/29/22 21:44 Dose: Not Given Documented By: Admin: 05/29/22 17:31 Dose: Not Given Documented By: Admin: 05/29/22 08:47 Dose: Not Given Documented By: Admin: 05/28/22 23:07 Dose: Not Given Documented By: BLANCHE Oxycodone HCl (Oxycodone Hcl Ir 5 Mg Tab (Immediate Release)) 5 mg PO Q8 PRN PRN Reason: Severe Pain Stop: 06/11/22 16:43 Last Admin: 05/29/22 21:52 Dose: 5 mg Documented By: Admin: 05/29/22 13:20 Dose: 5 mg Documented By: Admin: 05/29/22 05:44 Dose: 5 mg Documented By: Admin: 05/28/22 20:38 Dose: 5 mg Documented By: BLANCHE Simvastatin (Simvastatin 80 Mg Tab) 80 mg PO HS CRYS Stop: 06/27/22 20:59 Last Admin: 06/01/22 21:44 Dose: 80 mg Documented By: Admin: 05/31/22 21:06 Dose: 80 mg Documented By: Admin: 05/30/22 21:13 Dose: 80 mg Documented By: Admin: 05/29/22 21:44 Dose: 80 mg Documented By: Admin: 05/28/22 20:39 Dose: 80 mg Documented By: BLANCHE Vitamin D (Cholecalciferol 1,000 Units 25 Mcg Tab) 4,000 units PO DAILY CRYS Stop: 06/28/22 08:59 Last Admin: 06/02/22 08:28 Dose: 4,000 units Documented By: Admin: 06/01/22 08:49 Dose: 4,000 units Documented By: Admin: 05/31/22 08:20 Dose: 4,000 units Documented By: Admin: 05/30/22 09:09 Dose: 4,000 units Documented By: Admin: 05/29/22 08:49 Dose: 4,000 units Documented By: RRR Imaging Data Radiologist's Impression: Knee X-Ray 05/28/22 08:13 XR knee LT 3V CLINICAL HISTORY: pain, fall COMPARISON: Leg length study September 12, 2013. FINDINGS: Note is made of an acute minimally distracted fracture through the inferior aspect of the patella shown on lateral projection. There is a small joint effusion. No additional acute fractures are present. No osseous lesions are noted. Moderate vascular calcification is incidentally noted. Pre and infrapatellar soft tissue swelling is present. IMPRESSION: 1. Acute minimally distracted fracture through the inferior aspect of the patella. 2. Small left knee joint effusion. Pre and infrapatellar soft tissue swelling. ACT 112: Negative or not required by law. Electronically signed by: Lauri Quiñonez M.D. 05/28/2022 9:06 AM Chest X-Ray 05/28/22 08:15 XR chest 1V portable CLINICAL HISTORY: ?syncope TECHNIQUE: Single frontal radiograph of the chest was obtained. Comparison: Comparison is made to chest radiograph 06/04/2021 FINDINGS: No lines and tubes are seen. Cardiomegaly is noted. The aortic arch is calcifie d. The lungs are clear. No evidence of pleural effusion or pneumothorax. IMPRESSION: Very minimally without acute abnormality. ACT 112: Negative or not required by law. Electronically signed by: Aston Gay M.D. 05/28/2022 9:08 AM Discharge Plan Visit Data Chief Complaint: Fall Stated Complaint: FALL, R ELBOW, L KNEE AND FACE ED Provider: Oly Braun ED Midlevel Provider: Ginger Mendoza Discharge Problem: Fracture of lateral epicondyle of right humerus, Closed fracture of left patella, Fracture of nasal bone, Fall, Syncope Patient Disposition: Admitted As Inpatient Condition: Fair Discharge Instructions Interventions: ED Discharge Assessment Last Done: 05/28/22 17:05
--- NOTE | 2022-05-28 09:22 | XRay Report ---
XR elbow RT min 3V routine CLINICAL HISTORY: pain, fall TECHNIQUE: 3 views of the right elbow were obtained. Comparison: Comparison is made to abdomen radiograph 06/13/2017 FINDINGS: Bony fragment at the medial epicondyle is unchanged from prior exam. An irregular fragment in the lat eral epicondyles is new from prior exam. The remaining bones are unremarkable apart from minor degene rative changes. There is no prominence of the anterior or posterior fat pads to suggest an effusion. Soft tissue swelling is seen about the elbow. IMPRESSION: New appearing irregular fragment in the lateral epicondyle is of uncertain etiology but may represent an acute fracture. Correlation with point tenderness is recommended. The elbow joint is otherwise in tact. ACT 112: Negative or not required by law. Electronically signed by: Aston Gay M.D. 05/28/2022 9:20 AM
--- NOTE | 2022-05-28 09:41 | Emergency Department Note ---
History of Present Illness General Chief complaint: Fall Stated complaint: FALL, R ELBOW, L KNEE AND FACE Time Seen by Provider: 05/28/22 07:48 History of Present Illness Maximum Pain Intensity: 5 This 81-year-old female patient presents to the emergency department today, 1 day after a fall. The patient was uncertain what caused her to fall. She is uncertain if there was loss of consciousness or not. She was unloading groceries from the car into her car on the sidewalk and states the next thing she knew, she was waking up on the ground. She did strike her head. She reports bruising on her face, right elbow, left knee pain. She has been ambulatory. She states she was not going to get checked out, in fact she drove herself home yesterday, but notes that today, her family insisted she be seen. The patient is on aspirin daily. No other blood thinners. She reports 5/10 pa in in the face, right elbow, left knee. No other injury. No dizziness, nausea, vomiting, numbness, tingling, weakness, or other associated symptoms. Home Medications Medication Instructions Recorded Confirmed Type [id number] acid 0.4 1 tab PO DAILY 07/11/19 04/28/22 History mg-lycopene 300 mcg-lutein 250 mcg tablet (Centrum Silver) cholecalciferol (vitamin D3) 50 4,000 units PO DAILY #30 caps 08/08/19 04/28/22 Rx mcg (2,000 unit) capsule albuterol sulfate 90 mcg/actuation 2 puff inhalation Q6H PRN 05/22/21 04/28/22 Rx aerosol inhaler (Ventolin HFA) shortness of breath or wheezing #8.5 grams citalopram 20 mg tablet 30 mg PO DAILY #135 tabs 05/30/21 04/28/22 Rx aspirin 325 mg tablet 325 mg PO DAILY #30 tabs 06/11/21 04/28/22 Rx levothyroxine 75 mcg tablet 75 mcg PO DAILY #90 tabs 06/20/21 04/28/22 Rx simvastatin 80 mg tablet 80 mg PO HS #90 tabs 06/20/21 04/28/22 Rx spironolactone 25 mg tablet 25 mg PO DAILY #90 tabs 09/02/21 04/28/22 Rx alendronate 35 mg tablet 35 mg PO .COMPLEX #4 tabs 03/31/22 Rx lisinopril 10 mg tablet 20 mg PO QAM 05/28/22 05/28/22 History Allergies Allergy/AdvReac Type Severity Reaction Status Date / Time adhesive Allergy Unknown ITCHY,RED Verified 05/28/22 15:34 SKIN WITH RASH lactose Allergy Unknown diarrhea Verified 05/28/22 15:34 penicillin V Allergy Unknown HIVES Verified 05/28/22 15:34 Past Med/Surg History Medical History Depression Hearing loss Hyperlipemia Hypertension Hypothyroidism Impaired fasting glucose Lactase deficiency Osteopenia Primary hyperparathyroidism Solitary pulmonary nodule Uses hearing aid Vitamin D deficiency Surgical History History of colonoscopy History of total hip replacement (2012) Family History Father Diabetes Hypertension Myocardial infarction Mother Diabetes Hypertension Congestive heart failure Other Stroke Denies family history of Ovarian cancer Prostate cancer Breast cancer Colorectal cancer Social History Smoking Status: Current some day smoker Tobacco Type: Cigarettes Age Started Using Tobacco: 17; Age Quit Using Tobacco: 78; packs per day: 0.5; Years Smoked: 61; Second Hand Exposure: Yes; Hx Alcohol Use: Yes Alcohol type: hard liquor Hx Substance Use: No Preferred Language: Hebrew Communication Ability: Effective Hearing Ability: Use of Hearing Aid Clinical Biochemical Geneticist Required: No Beliefs That Will Affect Care: None marital status: / Current Living Situation: Family current occupational status: retired Feels Safe at Home: Yes Childhood Exposure to Second-Hand Smoke: Yes caffeine: Yes (3c coffee daily) Dental Care, Regularly: Yes Physical Activity Frequency: Does not Exercise Seatbelt Use: always Sunscreen Use: Yes Assistive Devices: None Review of Systems A total of 10 systems reviewed and were otherwise negative Physical Exam Vital Signs Vital Signs - 24 hr 05/28/22 07:40 05/28/22 07:37 05/28/22 08:14 Temperature 36.9 C Temperature Source Temporal Artery Scan Pulse Rate - Lying Pulse Rate - Sitting Pulse Rate - Standing Pulse Rate 81 56 L Pulse Rate [Apical] Pulse Rhythm Regular Regular Pulse Rhythm [Apical] Pulse Strength Normal Pulse Strength [Apical] Respiratory Rate 20 16 16 Respiratory Effort / Characteristics Non-Labored Spontaneous Non-Labored Respiratory Depth Normal Normal Respiratory Pattern Regular Regular Blood Pressure - Lying Blood Pressure - Sitting Blood Pressure- Standing Blood Pressure 150/87 H Blood Pressure [Left Arm] 166/85 H Blood Pressure Mean 108 Blood Pressure Mean [Left Arm] 112 Blood Pressure Position Sitting Blood Pressure Position [Left Arm] Lying Pulse Oximetry 96 95 94 Oxygen Delivery Method Room Air Room Air Room Air Sepsis Recent Fever Within 48 Hours No Sepsis New/Unexplained Change in Mental Status N/A Sepsis Action Taken by Nursing No Action Required 05/28/22 09:37 05/28/22 09:37 05/28/22 10:38 Temperature Temperature Source Pulse Rate - Lying 67 Pulse Rate - Sitting 56 L Pulse Rate - Standing 85 Pulse Rate Pulse Rate [Apical] 59 L 57 L Pulse Rhythm Pulse Rhythm [Apical] Regular Regular Pulse Strength Pulse Strength [Apical] Normal Normal Respiratory Rate 16 16 Respiratory Effort / Characteristics Non-Labored Non-Labored Respiratory Depth Normal Normal Respiratory Pattern Regular Regular Blood Pressure - Lying 134/80 Blood Pressure - Sitting 136/70 Blood Pressure- Standing 141/81 H Blood Pressure Blood Pressure [Left Arm] 164/83 H 173/79 H Blood Pressure Mean Blood Pressure Mean [Left Arm] 110 110 Blood Pressure Position Blood Pressure Position [Left Arm] Lying Lying Pulse Oximetry 97 95 Oxygen Delivery Method Room Air Room Air Sepsis Recent Fever Within 48 Hours Sepsis New/Unexplained Change in Mental Status Sepsis Action Taken by Nursing 05/28/22 12:00 05/28/22 14:00 05/28/22 15:00 Temperature Temperature Source Pulse Rate - Lying Pulse Rate - Sitting Pulse Rate - Standing Pulse Rate Pulse Rate [Apical] 58 L 56 L 62 Pulse Rhythm Pulse Rhythm [Apical] Regular Regular Pulse Strength Pulse Strength [Apical] Normal Respiratory Rate 16 16 17 Respiratory Effort / Characteristics Non-Labored Non-Labored Respiratory Depth Normal Normal Respiratory Pattern Regular Regular Blood Pressure - Lying Blood Pressure - Sitting Blood Pressure- Standing Blood Pressure Blood Pressure [Left Arm] 161/110 H 168/79 H Blood Pressure Mean Blood Pressure Mean [Left Arm] 127 108 Blood Pressure Position Blood Pressure Position [Left Arm] Lying Lying Pulse Oximetry 95 95 97 Oxygen Delivery Method Room Air Room Air Sepsis Recent Fever Within 48 Hours Sepsis New/Unexplained Change in Mental Status Sepsis Action Taken by Nursing VITALS: Vitals are noted on the nurse's note and reviewed by myself. Vital sign s stable. GENERAL: This is a 81 year old white female, in no acute distress, nondiaphoretic, well-developed well-nourished. SKIN: Superficial abrasions noted to the face. The skin was without rashes, erythema, edema, or bruising. There is no tenting of the skin. Capillary refill less than 2 seconds. HEAD: Normocephalic atraumatic. EARS: External auditory canals clear, tympanic membranes pearly messer without erythema or effusion bilaterally. No hemotympanum. negative fuller sign EYES: Pupils equal round and reactive to light and accommodation. Conjunctivae without injection, sclerae without icterus. Extraocular movements intact. Positive raccoon eyes. NOSE: Patent, turbinates without inflammation or discharge. No sinus tenderness. MOUTH: Mucous membranes moist. Tonsils are not enlarged. Pharynx without erythema or exudate. Uvula midline. Airway patent. Tongue does not deviate. NECK: Supple without nuchal rigidity. No lymphadenopathy. No thyromegaly. Cervical spine is nontender. No JVD. HEART: Regular rate and rhythm without murmurs gallops or rubs. LUNGS: Clear to auscultation bilaterally without wheezes, rales or rhonchi. No retractions or accessory muscle use. ABDOMEN: Positive bowel sounds x 4. Soft, nontender, without masses or organomegaly. Castle sign negative. No guarding or rebound tenderness. MUSCULOSKELETAL: No muscle atrophy, erythema, or edema noted. Full range of motion without joint tenderness in all extremities. No tenderness to palpation. Normal gait. Strength 5/5 throughout. NEURO: Patient was alert and oriented to person place and time. Normal sensation to light and sharp touch. No focal neurological deficits. Course Course The patient was seen and evaluated as above. An order was placed for continuous cardiac monitoring. The monitor shows a norm al sinus rhythm at a rate of 62 bpm. IV access obtained, labs drawn. Patient medicated with p.o. acetaminophen. Imaging performed and reviewed by myself and radiologist as noted. Labs reviewed by myself. I discussed the findings with the patient at bedside. Recommended rehab stay. The patient was agreeable. I discussed the case with [facility]. I initially spoke with Dr. Sanchez. He did review images, does not believe that the patient's injuries will be surgical in nature and recommends a knee immobilizer on the left knee, ambulation with a walker or crutch assist, and placing the right elbow in a posterior long-arm splint. We did discuss the need for a platform walker. He recommends the patient follow-up as an outpatient in 2 weeks. He was agreeable with rehab or SNF stay if needed. At this time, Karthik Hand PA-C did respond that he had reviewed the images for this patient. He made the same recommendations as Dr. Sanchez, recommended a sling for the elbow. I discussed case with the it manager, Ginger. She did meet with the patient. Unfortunately, there are no beds at the inpatient rehab facility, [facility] at this time. The patient does not wish to go to [facility] and the other SNF's in the area do not have beds today as well. The patient will require PT/OT evaluation and we agreed that inpatient care until patient is able to be safely placed in a facility would be the safest at this time. I discussed the case with Dr. Sotomayor, [facility] hospitalist physician. He did agree to see and evaluate the patient for admission. I again spoke with Karthik Hand PA-C from [facility] regarding the need for a platform walker. Unfortunately, we do not have any in the hospital at this time, but case management was able to locate one. Prescription was completed. Administered Medications Discontinued Medications Acetaminophen (Acetaminophen 500 Mg Tab) 1,000 mg PO NOW STA Stop: 05/28/22 08:30 Last Admin: 05/28/22 09:11 Dose: 1,000 mg Documented By: PEYTON Medical Decision Making Differential Diagnosis Fracture, dislocation, contusion, intra-abdominal, pneumothorax, intrathoracic, intracranial, neurologic, compartment syndrome, cardiac abnormality, rhabdomyolysis, as well as other pathologies. Medical Records Attestation: I reviewed the patient's medical records. Home Medications Current Medication List: was personally reviewed by me Laboratory Data Attestation: I reviewed the patient's lab results. No leukocytosis, anemia, thrombocytopenia. Renal, hepatic function, and electrolytes without significant abnormality. INR 1.0. Troponin 12.1. TSH 0.711. Urinalysis appears to be contaminated specimen. COVID-19 testing is negative. Result diagrams: 05/28/22 08:09 05/28/22 08:09 Lab Results 05/28/22 05/28/22 05/28/22 Range/Units 08:09 08:09 08:09 WBC 7.07 (4.8-10.8) K/ul RBC 5.33 H (3.93-5.22) M/uL Hgb 15.5 (12.0-16.0) g/dl Hct 48.2 H (34.1-44.9) % MCV 90.4 (80.0-100.0) fL MCH 29.1 (25.0-34.0) pg MCHC 32.2 (32.0-36.0) g/dL RDW Std Deviation 41.1 (36.4-46.3) fL RDW Coeff of Genaro 12.4 (11.5-14.5) % Plt Count 235 (130-400) K/uL MPV 10.4 (9.4-12.3) fL Immature Gran % (Auto) 0.1 % Neut % (Auto) 75.3 % Lymph % (Auto) 13.3 % Madison % (Auto) 8.8 % Eos % (Auto) 1.7 % Baso % (Auto) 0.8 % Neut # (Auto) 5.32 (1.4-6.5) K/uL Lymph # (Auto) 0.94 L (1.2-3.4) K/uL Madison # (Auto) 0.62 (0.24-0.82) K/uL Eos # (Auto) 0.12 (0-0.50) K/uL Baso # (Auto) 0.06 (0-0.2) K/uL Immature Gran # (Auto) 0.01 (0.00-0.02) K/uL PT 10.5 (9.0-12.0) Seconds INR 1.0 (0.9-1.1) APTT 25.9 (21.0-31.0) Seconds PTT Ratio 0.9 Sodium 138 (136-145) mmol/L Potassium 4.0 (3.5-5.1) mmol/L Chloride 101 (98-107) mmol/L Carbon Dioxide 28 (21-32) mmol/L Anion Gap 9 (3-11) BUN 16 (6-23) mg/dl Creatinine 0.68 (0.6-1.2) mg/dl Est Cr Clr Drug Dosing Not Reportable Est GFR ( Amer) 96.4 ml/min Est GFR (Non-Af Amer) 83.2 ml/min BUN/Creatinine Ratio 23.5 H (10-20) Glucose 102 H (70-99(Fasting)) mg/dl Calcium 10.5 H (8.5-10.1) mg/dl Magnesium 1.8 (1.7-2.4) mg/dl Total Bilirubin 0.8 (0.2-1.0) mg/dl AST 25 (13-39) U/L ALT 16 (7-52) U/L Alkaline Phosphatase 65 (34-104) U/L Troponin I High Sens 12.1 (0-14) pg/ml Total Protein 7.7 (6.0-8.3) gm/dl Albumin 4.9 (3.4-5.0) gm/dl Globulin 2.8 (2.5-4.0) gm/dl Albumin/Globulin Ratio 1.8 (0.9-2) TSH (0.300-4.500) uIu/ml Urine Color Urine Appearance (Clear) Urine pH (4.5-7.5) Ur Specific Marion (1.000-1.030) Urine Protein (Negative) Urine Glucose (UA) (Negative) Urine Ketones (Negative) Urine Blood (Negative) Urine Nitrite (Negative) Urine Bilirubin (Negative) Urine Urobilinogen (Negative) Ur Leukocyte Esterase (Negative) Urine WBC (Auto) (0-5) /hpf Urine RBC (Auto) (0-4) /hpf U Hyaline Cast (Auto) (0-5) /lpf U Epithel Cells (Auto) (0-5) /lpf Urine Bacteria (Auto) (Negative) SARS-CoV-2, RNA, NAAT (NEGATIVE) 05/28/22 05/28/22 05/28/22 Range/Units 08:09 11:40 13:40 WBC (4.8-10.8) K/ul RBC (3.93-5.22) M/uL Hgb (12.0-16.0) g/dl Hct (34.1-44.9) % MCV (80.0-100.0) fL MCH (25.0-34.0) pg MCHC (32.0-36.0) g/dL RDW Std Deviation (36.4-46.3) fL RDW Coeff of Genaro (11.5-14.5) % Plt Count (130-400) K/uL MPV (9.4-12.3) fL Immature Gran % (Auto) % Neut % (Auto) % Lymph % (Auto) % Madison % (Auto) % Eos % (Auto) % Baso % (Auto) % Neut # (Auto) (1.4-6.5) K/uL Lymph # (Auto) (1.2-3.4) K/uL Madison # (Auto) (0.24-0.82) K/uL Eos # (Auto) (0-0.50) K/uL Baso # (Auto) (0-0.2) K/uL Immature Gran # (Auto) (0.00-0.02) K/uL PT (9.0-12.0) Seconds INR (0.9-1.1) APTT (21.0-31.0) Seconds PTT Ratio Sodium (136-145) mmol/L Potassium (3.5-5.1) mmol/L Chloride (98-107) mmol/L Carbon Dioxide (21-32) mmol/L Anion Gap (3-11) BUN (6-23) mg/dl Creatinine (0.6-1.2) mg/dl Est Cr Clr Drug Dosing Est GFR ( Amer) ml/min Est GFR (Non-Af Amer) ml/min BUN/Creatinine Ratio (10-20) Glucose (70-99(Fasting)) mg/dl Calcium (8.5-10.1) mg/dl Magnesium (1.7-2.4) mg/dl Total Bilirubin (0.2-1.0) mg/dl AST (13-39) U/L ALT (7-52) U/L Alkaline Phosphatase (34-104) U/L Troponin I High Sens (0-14) pg/ml Total Protein (6.0-8.3) gm/dl Albumin (3.4-5.0) gm/dl Globulin (2.5-4.0) gm/dl Albumin/Globulin Ratio (0.9-2) TSH 0.711 (0.300-4.500) uIu/ml Urine Color Yellow Urine Appearance Clear (Clear) Urine pH 5.5 (4.5-7.5) Ur Specific Marion 1.011 (1.000-1.030) Urine Protein Negative (Negative) Urine Glucose (UA) Negative (Negative) Urine Ketones 1+ H (Negative) Urine Blood Negative (Negative) Urine Nitrite Negative (Negative) Urine Bilirubin Negative (Negative) Urine Urobilinogen Negative (Negative) Ur Leukocyte Esterase Trace H (Negative) Urine WBC (Auto) 1-5 (0-5) /hpf Urine RBC (Auto) 0-4 (0-4) /hpf U Hyaline Cast (Auto) 1-5 (0-5) /lpf U Epithel Cells (Auto) >30 H (0-5) /lpf Urine Bacteria (Auto) 1+ H (Negative) SARS-CoV-2, RNA, NAAT NEGATIVE (NEGATIVE) Imaging Data Radiologist's Impression: Cervical Spine CT 05/28/22 08:13 CT OF THE CERVICAL SPINE WITHOUT CONTRAST CLINICAL HISTORY: fall, head injury COMPARISON STUDY: No previous studies for comparison. TECHNIQUE: Helical axial images of the cervical spine were obtained without IV contrast. Sagittal and coronal reconstructions were viewed. Automated exposure control was utilized for the study. A dose lowering technique was utilized adhering to the principles of ALARA. FINDINGS: Alignment of the cervical spine is anatomic. Vertebral body heights are maintained. No acute cervical spine fracture or subluxation is present. There is no prevertebral edema. Facet joints are intact. Small amount of fluid within the left mastoid air cells is present. Moderate multilevel degenerative changes within the cervical spine are present. Degenerative changes at the C1-C2 articulation are noted. IMPRESSION: No acute cervical spine fracture or subluxation. ACT 112: Negative or not required by law. Electronically signed by: Lauri Quiñonez M.D. 05/28/2022 10:26 AM Elbow X-Ray 05/28/22 08:13 XR elbow RT min 3V routine CLINICAL HISTORY: pain, fall TECHNIQUE: 3 views of the right elbow were obtained. Comparison: Comparison is made to abdomen radiograph 06/13/2017 FINDINGS: Bony fragment at the medial epicondyle is unchanged from prior exam. An irregular fragment in the lateral epicondyles is new from prior exam. The remaining bones are unremarkable apart from minor degenerative changes. There is no prominence of the anterior or posterior fat pads to suggest an effusion. Soft tissue swelling is seen about the elbow. IMPRESSION: New appearing irregular fragment in the lateral epicondyle is of uncertain etiology but may represent an acute fracture. Correlation with point tenderness is recommended. The elbow joint is otherwise intact. ACT 112: Negative or not required by law. Electronically signed by: Aston Gay M.D. 05/28/2022 9:[address] 05/28/22 08:13 CT facial bones wo con CLINICAL HISTORY: fall, head injury, facial pain TECHNIQUE: Multidetector row helical CT of the maxillofacial bones was performed without administration of intravenous contrast, and processed with bone and soft tissue algorithms. Coronal and sagittal reformations were obtained. Automated dose lowering techniques and/or adjustment according to patient size were utilized for this exam. CT DOSE: 1579.19 mGy.cm Comparison: None available at the time of this dictation. FINDINGS: Acute fracture of the nasal bones seen. The mandible appears intact with a right-sided exostosis noted. The temporomandibular joints are anatomically aligned. Pterygoid plates are intact. Zygomatic arches are intact. The globes are normal and symmetric, without proptosis, obvious disruption or lens dislocation. There is no orbital radiopaque foreign body. The orbital bond are intact. The retrobulbar fat is without evidence of disruption. Extraocular muscles are normal and symmetric. Optic nerve sheath complexes are normal in course and caliber. Imaged portions of the paranasal sinuses and mastoid air cells are clear. IMPRESSION: Acute nasal fracture is seen with associated soft tissue swelling. Otherwise no facial fractures are seen. ACT 112: Negative or not required by law. Electronically signed by: Aston Gay M.D. 05/28/2022 10:41 AM Knee X-Ray 05/28/22 08:13 XR knee LT 3V CLINICAL HISTORY: pain, fall COMPARISON: Leg length study September 12, 2013. FINDINGS: Note is made of an acute minimally distracted fracture through the inferior aspect of the patella shown on lateral projection. There is a small joint effusion. No additional acute fractures are present. No osseous lesions a re noted. Moderate vascular calcification is incidentally noted. Pre and infrapatellar soft tissue swelling is present. IMPRESSION: 1. Acute minimally distracted fracture through the inferior aspect of the patella. 2. Small left knee joint effusion. Pre and infrapatellar soft tissue swelling. ACT 112: Negative or not required by law. Electronically signed by: Lauri Quiñonez M.D. 05/28/2022 9:06 AM Chest X-Ray 05/28/22 08:15 XR chest 1V portable CLINICAL HISTORY: ?syncope TECHNIQUE: Single frontal radiograph of the chest was obtained. Comparison: Comparison is made to chest radiograph 06/04/2021 FINDINGS: No lines and tubes are seen. Cardiomegaly is noted. The aortic arch is calcified. The lungs are clear. No evidence of pleural effusion or pneumothorax. IMPRESSION: Very minimally without acute abnormality. ACT 112: Negative or not required by law. Electronically signed by: Aston Gay M.D. 05/28/2022 9:[address] 05/28/22 08:15 CT head/brain wo con CLINICAL HISTORY: syncope, fall, head injury Technique: Contiguous axial CT images of the head were acquired from the base of the skull to the vertex without intravenous contrast administration. Images were viewed in brain, subdural and bone windows. Automated dose lowering techniques and/or adjustment according to patient size were utilized for this exam. Comparison: None available at the time of this dictation. Findings: The ventricles, basal cisterns, and cerebral sulci are normal. There is no acute intracranial hemorrhage or evidence of acute territorial infarction. Neither mass effect, shift of the midline structures, nor abnormal extra-axial fluid collections are shown. Imaged portions of the paranasal sinuses and mastoid air cells are clear. The orbits appear normal. There are no acute fractures of the calvaria or scalp swelling. Impression: No acute intracranial hemorrhage, no evidence of acute territorial infarction or other acute intracranial disease process. ACT 112: Negative or not required by law. Electronically signed by: Aston Gay M.D. 05/28/2022 10:32 AM Blood Pressure Blood Pressure Findings: Elevated blood pressure Blood Pressure Disposition: further management by hospitalist Head Trauma GCS Score: 15 MDM Narrative This is a 81-year-old female patient who presents to the emergency department today for injury sustained when she fell yesterday. CT and x-ray imaging as above performed. Labs as above, unrevealing. There was concern for left patella fracture and right lateral epicondyle fracture of the elbow. The patient will require splinting of the left knee and right elbow and will require the use of a walker to help with weightbearing. I did consult with [facility], initially spoke with Dr. Sanchez, followed by Karthik Hand PA-C. I do not feel that this patient is safe to go home at this time. We did attempt to get her set up with inpatient rehab, but unfortunately, there are no beds currently available. Recommendation for splinting and ambulation with a p latform walker was made. Order for the platform walker was provided. The patient will be admitted to the hospital for PT/OT evaluations. Orthopedics will be consulted and the plan is for the patient to go to either a SNF or inpatient rehab facility. Please see hospitalist, orthopedics dictation regarding ongoing management care of this patient. The chart was completed utilizing [employer] Speech voice recognition software. Grammatical errors, random word insertions, pronoun errors, and incomplete sentences are an occasional consequence of this system due to software limitations, ambient noise, and hardware issues. Any formal questions or concerns about the content, text, or information contained within the body of this dictation should be directly addressed to the provider for clarification. Impression & Plan Fracture of lateral epicondyle of right humerus, Closed fracture of left patella, Fracture of nasal bone, Fall, Syncope Discharge Plan Visit Data Chief Complaint: Fall Stated Complaint: FALL, R ELBOW, L KNEE AND FACE ED Provider: Oly Braun ED Midlevel Provider: Ginger Mendoza Discharge Problem: Fracture of lateral epicondyle of right humerus, Closed fracture of left patella, Fracture of nasal bone, Fall, Syncope Patient Disposition: Admitted As Inpatient Condition: Good Forms Stand Alone Forms: My [facility] [employer] Prescriptions Prescriptions: No Action citalopram 20 mg tablet 30 mg PO DAILY Qty: 135 3RF aspirin 325 mg tablet 325 mg PO DAILY Qty: 30 2RF simvastatin 80 mg tablet 80 mg PO HS Qty: 90 3RF levothyroxine 75 mcg tablet 75 mcg PO DAILY Qty: 90 3RF spironolactone 25 mg tablet 25 mg PO DAILY Qty: 90 3RF alendronate 35 mg tablet 35 mg PO .COMPLEX Qty: 4 11RF Rx Instructions: 35 mg PO once weekly; lisinopril 10 mg tablet 10 mg PO BID Qty: 180 3RF albuterol sulfate [Ventolin HFA] 90 mcg/actuation HFA aerosol inhaler 2 puff inhalation Q6H PRN (Reason: shortness of breath or wheezing) Qty: 8.5 11RF Centrum Silver 0.4-300-250 mg-mcg-mcg tablet 1 tab PO DAILY cholecalciferol (vitamin D3) 2,000 unit capsule 4,000 units PO DAILY Qty: 30 0RF Referrals Referrals: Linus Hunt MD [Primary Care Provider] -
--- NOTE | 2022-05-28 10:28 | CT Scan Report ---
CT OF THE CERVICAL SPINE WITHOUT CONTRAST CLINICAL HISTORY: fall, head injury COMPARISON STUDY: No previous studies for comparison. TECHNIQUE: Helical axial images of the cervical spine were obtained without IV contrast. Sagittal a nd coronal reconstructions were viewed. Automated exposure control was utilized for the study. A do se lowering technique was utilized adhering to the principles of ALARA. FINDINGS: Alignment of the cervical spine is anatomic. Vertebral body heights are maintained. No acut e cervical spine fracture or subluxation is present. There is no prevertebral edema. Facet joints are intact. Small amount of fluid within the left mastoid air cells is present. Moderate multilevel deg enerative changes within the cervical spine are present. Degenerative changes at the C1-C2 articulati on are noted. IMPRESSION: No acute cervical spine fracture or subluxation. ACT 112: Negative or not required by law. Electronically signed by: Lauri Quiñonez M.D. 05/28/2022 10:26 AM
--- NOTE | 2022-05-28 10:33 | CT Scan Report ---
CT head/brain wo con CLINICAL HISTORY: syncope, fall, head injury Technique: Contiguous axial CT images of the head were acquired from the base of the skull to the anastacio denise without intravenous contrast administration. Images were viewed in brain, subdural and bone [facility]. Automated dose lowering techniques and/or adjustment according to patient size were utilized for this exam. Comparison: None available at the time of this dictation. Findings: The ventricles, basal cisterns, and cerebral sulci are normal. There is no acute intracranial hemorrh age or evidence of acute territorial infarction. Neither mass effect, shift of the midline structures , nor abnormal extra-axial fluid collections are shown. Imaged portions of the paranasal sinuses and mastoid air cells are clear. The orbits appear normal. There are no acute fractures of the calvaria or scalp swelling. Impression: No acute intracranial hemorrhage, no evidence of acute territorial infarction or other acute intracra nial disease process. ACT 112: Negative or not required by law. Electronically signed by: Aston Gay M.D. 05/28/2022 10:32 AM
--- NOTE | 2022-05-28 10:43 | CT Scan Report ---
CT facial bones wo con CLINICAL HISTORY: fall, head injury, facial pain TECHNIQUE: Multidetector row helical CT of the maxillofacial bones was performed without administrati on of intravenous contrast, and processed with bone and soft tissue algorithms. Coronal and sagittal reformations were obtained. Automated dose lowering techniques and/or adjustment according to patient size were utilized for this exam. CT DOSE: 1579.19 mGy.cm Comparison: None available at the time of this dictation. FINDINGS: Acute fracture of the nasal bones seen. The mandible appears intact with a right-sided exostosis note d. The temporomandibular joints are anatomically aligned. Pterygoid plates are intact. Zygomatic arc hes are intact. The globes are normal and symmetric, without proptosis, obvious disruption or lens dislocation. Ther e is no orbital radiopaque foreign body. The orbital bond are intact. The retrobulbar fat is without evidence of disruption. Extraocular muscles are normal and symmetric. Optic nerve sheath complexes are normal in course and caliber. Imaged portions of the paranasal sinuses and mastoid air cells are clear. IMPRESSION: Acute nasal fracture is seen with associated soft tissue swelling. Otherwise no facial fractures are seen. ACT 112: Negative or not required by law. Electronically signed by: Aston Gay M.D. 05/28/2022 10:41 AM
[2022-05-28 14:18] LABS: Appearance Urine Clear (Clear); Bacteria Urine Automated 1+ (Negative); Bilirubin Urine Negative (Negative); Blood Urine Negative (Negative); Color Urine Yellow; Epithelial Cell Urine Auto >30 /lpf (0-5); Glucose Urine UA Negative (Negative); Ketones Urine 1+ (Negative); Leukocyte Esterase Urine Trace (Negative); Nitrite Urine Negative (Negative); Protein Urine Negative (Negative); RBC Urine Automated 0-4 /hpf (0-4); Specific Gravity Urine 1.011 (1.000-1.030); Urobilinogen Urine Negative (Negative); pH Urine 5.5 (4.5-7.5)
--- NOTE | 2022-05-28 15:14 | History & Physical Report ---
Date of Service May 28, 2022 Assessment & Plan (1) Syncope: Plan: Syncope with collapse resulting in below injuries - is without recollection of event - will place on telemetry for 24 hours follow arrhythmia will obtain ECHO with hx of cardiomyopathy - sinus margarita without ECG changes - hold her spironolactone - continue LARRY (2) Fracture of lateral epicondyle of right humerus: Plan: Splint with sling pain control with tylenol, ultram, oxy for severe pain as needed - ortho consult appreciated (3) Closed fracture of left patella: Plan: with knee immobilizer in place- keep immobilizer on while out of bed and always with weight bearing ortho consulted to follow effusion and follow up (4) Nasal fracture: Plan: with patent nasal passages and without other orbital fractures - consider ent follow up after acute swelling decreased for eval if setting needed (5) Vitamin D deficiency: Plan: continue vitamin d (6) Osteopenia: Plan: continue alendronate (7) Hypothyroidism: Plan: continue synthroid (8) Hypertension: Plan: continue LARRY hold spirnolactone (9) Diabetes type 2, controlled: Plan: reported as well controlled not on agent at home follow with daily BMP goal <180mg/dl (10) Sleep apnea: Plan: CPAP of 7 at night, however with her nasal fracture and facial bruising will not be able to wear will place on nasal cannula at night for hypoxia if needed (11) Cardiomyopathy: Plan: ECHO with mildly reduced EF 45-50% with normal LV size - will repeat ECHO with syncope - abnormal stress echo in past done and cath with non obstructive CAD (12) Bradycardia: Plan: Chronic and stable without hemodynamic instability - BB in the past discontinued and remains with SB. Plan PT/OT evaluation for evaluation for rehab need and await placement appreciate orthopaedics assistance History of Present Illness Primary Care Provider: Linus Hunt MD 81 YOF with medical history of: osteopenia, DM II controlled, Depression, HTN, Hypothyroidism, HLD, Cardiomyopathy, sinus bradycardia, abnormal EST with mild to moderate non-obstructive CAD. Patient comes to the EMD today for evaluation of worsening pain to her left knee and right arm. The patient reports that her injuries occurred following a collapse while at the grocery store yesterday. Patient states that she was leaving the grocery store and when she got to just outside and went to take her groceries out of the cart and go to the car and then woke up on the ground with people around her. She couldn't get up because her knee and arm hurt. Her daughter came and picked her up and she declined to come to the hospital yesterday. Patient has recollection of how she ended up on the ground and denies any dizziness of pre-syncope feelings or spinning. She has felt well over the past week and no recent illness. In the EMD the patient had routine blood work completed to include UA. She had CT scan of her head, face, and cervical spine completed, and chest and knee x-rays completed. She is noted to have acute minimally distracted/displaced left patella fracture, nose fracture, and right lateral epicondyle fracture. She was splinted to her right arm and immobilizer placed to her left knee. It was felt she would need rehab for her injuries, and there are no places that have a bed at this time. Hospitalist service was consulted for admission. Pain is controlled. Will place on telemetry overnight follow for arrhythmia, obtain ECHO with her Cardiomyopathy history. Consult Orthopaedics for splinting and follow up coordination. COVID test on admission is: NEGATIVE Allergies Allergy/AdvReac Type Severity Reaction Status Date / Time adhesive Allergy Unknown ITCHY,RED Verified 05/28/22 15:34 SKIN WITH RASH lactose Allergy Unknown diarrhea Verified 05/28/22 15:34 penicillin V Allergy Unknown HIVES Verified 05/28/22 15:34 Home Medications Medication Instructions Recorded Confirmed Type tczkydvg-gem-aayha acid 0.4 1 tab PO DAILY 07/11/19 05/28/22 History mg-lycopene 300 mcg-lutein 250 mcg tablet (Centrum Silver) cholecalciferol (vitamin D3) 50 4,000 units PO DAILY #30 caps 08/08/19 05/28/22 Rx mcg (2,000 unit) capsule albuterol sulfate 90 mcg/actuation 2 puff inhalation Q6H PRN 05/22/21 05/28/22 Rx aerosol inhaler (Ventolin HFA) shortness of breath or wheezing #8.5 grams citalopram 20 mg tablet 30 mg PO DAILY #135 tabs 05/30/21 05/28/22 Rx aspirin 325 mg tablet 325 mg PO DAILY #30 tabs 06/11/21 05/28/22 Rx levothyroxine 75 mcg tablet 75 mcg PO DAILY #90 tabs 06/20/21 05/28/22 Rx simvastatin 80 mg tablet 80 mg PO HS #90 tabs 06/20/21 05/28/22 Rx spironolactone 25 mg tablet 25 mg PO DAILY #90 tabs 09/02/21 05/28/22 Rx alendronate 35 mg tablet 35 mg PO .COMPLEX #4 tabs 03/31/22 05/28/22 Rx lisinopril 10 mg tablet 20 mg PO QAM 05/28/22 05/28/22 History Past Med/Surg History Medical History Depression Hearing loss Hyperlipemia Hypertension Hypothyroidism Impaired fasting glucose Lactase deficiency Osteopenia Primary hyperparathyroidism Solitary pulmonary nodule Uses hearing aid Vitamin D deficiency Surgical History History of colonoscopy History of total hip replacement (2012) Family History Father Diabetes Hypertension Myocardial infarction Mother Diabetes Hypertension Congestive heart failure Other Stroke Denies family history of Ovarian cancer Prostate cancer Breast cancer Colorectal cancer Social History Smoking Status: Current some day smoker Tobacco Type: Cigarettes Age Started Using Tobacco: 17; Age Quit Using Tobacco: 78; packs per day: 0.5; Years Smoked: 61; Second Hand Exposure: Yes; Hx Alcohol Use: Yes Alcohol type: hard liquor Hx Substance Use: No Preferred Language: [place]de[place] Communication Ability: Effective Hearing Ability: Use of Hearing Aid Edm Operator Required: No Beliefs That Will Affect Care: None marital status: / Current Living Situation: Family current occupational status: retired Feels Safe at Home: Yes Childhood Exposure to Second-Hand Smoke: Yes caffeine: Yes (3c coffee daily) Dental Care, Regularly: Yes Physical Activity Frequency: Does not Exercise Seatbelt Use: always Sunscreen Use: Yes Assistive Devices: None Review of Systems Review of Systems: REVIEW OF SYSTEMS: Constitutional: No fever, sweats or chills Eyes: No diplopia, no worsening or blurred vision ENT: (+) chipped tooth, face bruising, eye bruising, normal hearing, no trouble swallowing Respiratory: No cough, sputum, dyspnea at rest or on exertion Cardiovascular: No chest pain, tightness or palpitations Abdomen: No pain, nausea, vomiting, diarrhea or constipation Musculoskeletal: (+) face pain, right arm pain, left knee pain, facial bruising, Neurologic: No weakness, numbness/tingling, or balance problems Psychiatric: No anxiety or depression Skin: No rash or itch Physical Exam Physical Exam: PHYSICAL EXAM: General: awake, alert, no apparent distress Head: Normocephalic, bruising to right eye, nose, lips and chin ENT: PERRL, EOMI, no pharyngeal exudate, mucous membranes moist Neuro: AAO x 3, speech clear and appropriate, strength intact bilaterally 5/5, sensation intact and equal all extremities and dermatomes, no pronator drift Chest: equal rise and fall of the chest, no accessory muscle use, no heaves or thrills, Clear to auscultation, on room air, Cardiac: Regular rate and rhythm, telemetry reviewed- sinus margarita, skin warm dry, cap refill <3 seconds, peripheral pulses +2 no JVD, no murmur, no JVD, no edema GI: NABS x 4 quadrants, soft, nontender to palpation, no rebound, guarding or tenderness : Spontaneously voiding, no pain, no CVA tenderness, MSK: No cervical spine tenderness, CT cleared, no midline spine tenderness, pelvis stable, no pain or deformity to lower legs with palpation Psych: Normal mood and affect Results & Data Results & Data ([facility]) Vital Signs (Past 12 Hours) Vital Signs Temp Pulse Pulse Resp BP BP Pulse Ox 05/28/22 14:00 56 L 16 168/79 H 95 05/28/22 12:00 58 L 16 161/110 H 95 05/28/22 10:38 57 L 16 173/79 H 95 05/28/22 09:37 59 L 16 164/83 H 97 05/28/22 08:14 56 L 16 94 05/28/22 07:37 16 166/85 H 95 05/28/22 07:40 36.9 C 81 20 150/87 H 96 O2 Del Method 05/28/22 14:00 Room Air 05/28/22 12:00 Room Air 05/28/22 10:38 Room Air 05/28/22 09:37 Room Air 05/28/22 08:14 Room Air 05/28/22 07:37 Room Air 05/28/22 07:40 Room Air Laboratory Results Abnormal lab results 05/28/22 05/28/22 05/28/22 Range/Units 08:09 08:09 13:40 RBC 5.33 H (3.93-5.22) M/uL Hct 48.2 H (34.1-44.9) % Lymph # (Auto) 0.94 L (1.2-3.4) K/uL BUN/Creatinine Ratio 23.5 H (10-20) Glucose 102 H (70-99(Fasting)) mg/dl Calcium 10.5 H (8.5-10.1) mg/dl Urine Ketones 1+ H (Negative) Ur Leukocyte Esterase Trace H (Negative) U Epithel Cells (Auto) >30 H (0-5) /lpf Urine Bacteria (Auto) 1+ H (Negative) Diagnostic Findings Cervical Spine CT 05/28/22 08:13 CT OF THE CERVICAL SPINE WITHOUT CONTRAST CLINICAL HISTORY: fall, head injury COMPARISON STUDY: No previous studies for comparison. TECHNIQUE: Helical axial images of the cervical spine were obtained without IV contrast. Sagittal and coronal reconstructions were viewed. Automated exposure control was utilized for the study. A dose lowering technique was utilized adhering to the principles of ALARA. FINDINGS: Alignment of the cervical spine is anatomic. Vertebral body heights are maintained. No acute cervical spine fracture or subluxation is present. There is no prevertebral edema. Facet joints are intact. Small amount of fluid within the left mastoid air cells is present. Moderate multilevel degenerative changes within the cervical spine are present. Degenerative changes at the C1-C2 articulation are noted. IMPRESSION: No acute cervical spine fracture or subluxation. ACT 112: Negative or not required by law. Electronically signed by: Lauri Quiñonez M.D. 05/28/2022 10:26 AM Elbow X-Ray 05/28/22 08:13 XR elbow RT min 3V routine CLINICAL HISTORY: pain, fall TECHNIQUE: 3 views of the right elbow were obtained. Comparison: Comparison is made to abdomen radiograph 06/13/2017 FINDINGS: Bony fragment at the medial epicondyle is unchanged from prior exam. An irregular fragment in the lateral epicondyles is new from prior exam. The remaining bones are unremarkable apart from minor degenerative changes. There is no prominence of the anterior or posterior fat pads to suggest an effusion. Soft tissue swelling is seen about the elbow. IMPRESSION: New appearing irregular fragment in the lateral epicondyle is of uncertain etiology but may represent an acute fracture. Correlation with point tenderness is recommended. The elbow joint is otherwise intact. ACT 112: Negative or not required by law. Electronically signed by: Aston Gay M.D. 05/28/2022 9:[address] 05/28/22 08:13 CT facial bones wo con CLINICAL HISTORY: fall, head injury, facial pain TECHNIQUE: Multidetector row helical CT of the maxillofacial bones was performed without administration of intravenous contrast, and processed with bone and soft tissue algorithms. Coronal and sagittal reformations were obtained. Automated dose lowering techniques and/or adjustment according to patient size were utilized for this exam. CT DOSE: 1579.19 mGy.cm Comparison: None available at the time of this dictation. FINDINGS: Acute fracture of the nasal bones seen. The mandible appears intact with a right-sided exostosis noted. The temporomandibular joints are anatomically aligned. Pterygoid plates are intact. Zygomatic arches are intact. The globes are normal and symmetric, without proptosis, obvious disruption or lens dislocation. There is no orbital radiopaque foreign body. The orbital bond are intact. The retrobulbar fat is without evidence of disruption. Extraocular muscles are normal and symmetric. Optic nerve sheath complexes are normal in course and caliber. Imaged portions of the paranasal sinuses and mastoid air cells are clear. IMPRESSION: Acute nasal fracture is seen with associated soft tissue swelling. Otherwise no facial fractures are seen. ACT 112: Negative or not required by law. Electronically signed by: Aston Gay M.D. 05/28/2022 10:41 AM Knee X-Ray 05/28/22 08:13 XR knee LT 3V CLINICAL HISTORY: pain, fall COMPARISON: Leg length study September 12, 2013. FINDINGS: Note is made of an acute minimally distracted fracture through the inferior aspect of the patella shown on lateral projection. There is a small joint effusion. No additional acute fractures are present. No osseous lesions are noted. Moderate vascular calcification is incidentally noted. Pre and infrapatellar soft tissue swelling is present. IMPRESSION: 1. Acute minimally distracted fracture through the inferior aspect of the patella. 2. Small left knee joint effusion. Pre and infrapatellar soft tissue swelling. ACT 112: Negative or not required by law. Electronically signed by: Lauri Quiñonez M.D. 05/28/2022 9:06 AM Chest X-Ray 05/28/22 08:15 XR chest 1V portable CLINICAL HISTORY: ?syncope TECHNIQUE: Single frontal radiograph of the chest was obtained. Comparison: Comparison is made to chest radiograph 06/04/2021 FINDINGS: No lines and tubes are seen. Cardiomegaly is noted. The aortic arch is calcified. The lungs are clear. No evidence of pleural effusion or pneumothorax. IMPRESSION: Very minimally without acute abnormality. ACT 112: Negative or not required by law. Electronically signed by: Aston Gay M.D. 05/28/2022 9:[address] 05/28/22 08:15 CT head/brain wo con CLINICAL HISTORY: syncope, fall, head injury Technique: Contiguous axial CT images of the head were acquired from the base of the skull to the vertex without intravenous contrast administration. Images were viewed in brain, subdural and bone windows. Automated dose lowering techniques and/or adjustment according to patient size were utilized for this exam. Comparison: None available at the time of this dictation. Findings: The ventricles, basal cisterns, and cerebral sulci are normal. There is no acute intracranial hemorrhage or evidence of acute territorial infarction. Neither mass effect, shift of the midline structures, nor abnormal extra-axial fluid collections are shown. Imaged portions of the paranasal sinuses and mastoid air cells are clear. The orbits appear normal. There are no acute fractures of the calvaria or scalp swelling. Impression: No acute intracranial hemorrhage, no evidence of acute territorial infarction or other acute intracranial disease process. ACT 112: Negative or not required by law. Electronically signed by: Aston Gay M.D. 05/28/2022 10:32 AM Medications Administered Home Medications rdtmocjt-xez-lhrvy acid 0.4 mg-lycopene 300 mcg-lutein 250 mcg tablet (Centrum Silver) 1 tab PO DAILY 07/11/19 [History Confirmed 04/28/22] cholecalciferol (vitamin D3) 50 mcg (2,000 unit) capsule 4,000 units PO DAILY #30 caps 08/08/19 [Rx Confirmed 04/28/22] albuterol sulfate 90 mcg/actuation aerosol inhaler (Ventolin HFA) 2 puff inhalation Q6H PRN shortness of breath or wheezing #8.5 grams 05/22/21 [Rx Confirmed 04/28/22] citalopram 20 mg tablet 30 mg PO DAILY #135 tabs 05/30/21 [Rx Confirmed 04/28/22] aspirin 325 mg tablet 325 mg PO DAILY #30 tabs 06/11/21 [Rx Confirmed 04/28/22] levothyroxine 75 mcg tablet 75 mcg PO DAILY #90 tabs 06/20/21 [Rx Confirmed 04/28/22] simvastatin 80 mg tablet 80 mg PO HS #90 tabs 06/20/21 [Rx Confirmed 04/28/22] spironolactone 25 mg tablet 25 mg PO DAILY #90 tabs 09/02/21 [Rx Confirmed 04/28/22] alendronate 35 mg tablet 35 mg PO .COMPLEX #4 tabs 03/31/22 [Rx] lisinopril 10 mg tablet 10 mg PO BID #180 tabs 05/06/22 [Rx] Discontinued Medications Acetaminophen (Acetaminophen 500 Mg Tab) 1,000 mg PO NOW STA Stop: 05/28/22 08:30 Last Admin: 05/28/22 09:11 Dose: 1,000 mg Documented By: VAP ECG Additional Comments: Sinus bradycardia Left axis deviation Minimal voltage criteria for LVH, may be normal variant Abnormal ECG When compared with ECG of 28-SEP-2012 09:59, No significant change was found Code Status & VTE Plan Code Status CODE: DNR/DNI VTE: SCDS, asa, ambulation VTE Prophylaxis Plan VTE Prophylaxis will be ordered: Yes Supervising Physician Co-Signing Physician Notes Discussed case with CERTIFIED FORKLIFT OPERATOR, agree with his note above. Patient is here after possible syncopal episode yesterday. Patient has superficial trauma. She also has a right lateral epicondyle fracture, left patellar fracture. Patient requires rehab, was not able to be placed today. Cannot safely be discharged home at this time. Plan to place in observation, continue PT/OT while working on acute rehab arrangements. PG Care Time/CCT Total # of Minutes Spent Total Time Spent with Patient: Total time spent is greater than 50% in coordination of care (as documented) at patient's floor/unit and/or counseling patient: Coding Level of Care Code 59095 Initial Inpt Care Lvl 3 Diagnoses Syncope R55 Fracture of lateral epicondyle of right humerus S42.431A Closed fracture of left patella S82.002A Nasal fracture S02.2XXA Vitamin D deficiency E55.9 Osteopenia M85.80 Hypothyroidism E03.9 Hypertension I10 Diabetes type 2, controlled E11.9 Sleep apnea G47.30 Cardiomyopathy I42.9 Bradycardia R00.1
[2022-05-28] MEDS ORDERED: traMADol HCL 50 MG TABLET PO PRN (16:44)
[2022-05-28] MEDS ORDERED: ALBUTEROL HFA 8 GM INHALER INH PRN (16:44)
--- NOTE | 2022-05-28 17:32 | Orthopedic Consultation ---
Date of Consultation May 28, 2022 Assessment & Plan (1) Fracture of lateral epicondyle of right humerus: Patient had a dislocation by history of a right elbow about 5 years ago where clearly popped out and required reduction and treatment. This did not occur at this time but she is sore on the medial side of her elbow. Most likely scenario at this time is that the lateral epicondyle fracture is old from the old dislocation and she has a new medial sided elbow sprain. At this point I would recommend treating her with the posterior splint but reevaluate her splint in about a week possibly could go into a hinged elbow brace or to start early range of motion without brace. Elbow is safe for weightbearing using a platform walker. Recommend follow-up as outpatient 1 week (2) Closed fracture of left patella: Transverse nondisplaced distal patella fracture with intact extensor mechanism. Treatment is keep knee in full extension with knee immobilizer. Will need DVT prophylaxis. After few weeks with knee in extension we will likely start some gentle protected range of motion and not bilateral upright drop lock hinged knee brace with range of motion controlled with increased range of motion gradually over time and follow x-rays. Recommend follow-up as outpatient in 1 week. History of Present Illness Reason for Consultation: Right elbow and left knee injuries Attending Physician: Lalit Sotomayor, DO History of Present Illness Patient fell at a grocery store yesterday and has left knee right elbow pain. She says her elbow hurts when she does some type of valgus stress to her elbow and hurts more in the medial side. The patella hurts her left knee. She is able to extend her knee with pain. Allergies Allergy/AdvReac Type Severity Reaction Status Date / Time adhesive Allergy Unknown ITCHY,RED Verified 05/28/22 15:34 SKIN WITH RASH lactose Allergy Unknown diarrhea Verified 05/28/22 15:34 penicillin V Allergy Unknown HIVES Verified 05/28/22 15:34 Home Medications Medication Instructions Recorded Confirmed Type secqwzpf-lii-qbmix acid 0.4 1 tab PO DAILY 07/11/19 05/28/22 History mg-lycopene 300 mcg-lutein 250 mcg tablet (Centrum Silver) cholecalciferol (vitamin D3) 50 4,000 units PO DAILY #30 caps 08/08/19 05/28/22 Rx mcg (2,000 unit) capsule albuterol sulfate 90 mcg/actuation 2 puff inhalation Q6H PRN 05/22/21 05/28/22 Rx aerosol inhaler (Ventolin HFA) shortness of breath or wheezing #8.5 grams citalopram 20 mg tablet 30 mg PO DAILY #135 tabs 05/30/21 05/28/22 Rx aspirin 325 mg tablet 325 mg PO DAILY #30 tabs 06/11/21 05/28/22 Rx levothyroxine 75 mcg tablet 75 mcg PO DAILY #90 tabs 06/20/21 05/28/22 Rx simvastatin 80 mg tablet 80 mg PO HS #90 tabs 06/20/21 05/28/22 Rx spironolactone 25 mg tablet 25 mg PO DAILY #90 tabs 09/02/21 05/28/22 Rx alendronate 35 mg tablet 35 mg PO .COMPLEX #4 tabs 03/31/22 05/28/22 Rx lisinopril 10 mg tablet 20 mg PO QAM 05/28/22 05/28/22 History Patient History Medical History Depression Hearing loss Hyperlipemia Hypertension Hypothyroidism Impaired fasting glucose Lactase deficiency Osteopenia Primary hyperparathyroidism Solitary pulmonary nodule Uses hearing aid Vitamin D deficiency Surgical History History of colonoscopy History of total hip replacement (2012) Family History Father Diabetes Hypertension Myocardial infarction Mother Diabetes Hypertension Congestive heart failure Other Stroke Denies family history of Ovarian cancer Prostate cancer Breast cancer Colorectal cancer Social History Smoking Status: Current some day smoker Tobacco Type: Cigarettes Age Started Using Tobacco: 17; Age Quit Using Tobacco: 78; packs per day: 0.5; Years Smoked: 61; Second Hand Exposure: Yes; Hx Alcohol Use: Yes Alcohol type: hard liquor Hx Substance Use: No Preferred Language: Thai Communication Ability: Effective Hearing Ability: Use of Hearing Aid Manager Of [facility] Required: No Beliefs That Will Affect Care: None marital status: / Current Living Situation: Family current occupational status: retired Feels Safe at Home: Yes Childhood Exposure to Second-Hand Smoke: Yes caffeine: Yes (3c coffee daily) Dental Care, Regularly: Yes Physical Activity Frequency: Does not Exercise Seatbelt Use: always Sunscreen Use: Yes Assistive Devices: None Review of Systems Review of Systems: Currently awake and alert in stable condition. Physical Exam Physical Exam: Left knee exam she can do an independent straight leg raise without extensor lag without brace on. There is moderate swelling around the anterior knee with no major knee effusion. Eze exam is stable stable to varus valgus stress. I did not flex her knee with known patella fracture. Right elbow is in a posterior splint she has no tenderness over the lateral side of elbow which does have tenderness over the medial side of her elbow. Distal neurological exam is intact. Results & Data ([facility]) Vital Signs (Past 12 Hours) Vital Signs Temp Pulse Pulse Resp BP BP Pulse Ox 05/28/22 17:05 57 L 19 94 05/28/22 15:00 62 17 97 05/28/22 14:00 56 L 16 168/79 H 95 05/28/22 12:00 58 L 16 161/110 H 95 05/28/22 10:38 57 L 16 173/79 H 95 05/28/22 09:37 59 L 16 164/83 H 97 05/28/22 08:14 56 L 16 94 05/28/22 07:37 16 166/85 H 95 05/28/22 07:40 36.9 C 81 20 150/87 H 96 O2 Del Method 05/28/22 17:05 05/28/22 15:00 05/28/22 14:00 Room Air 05/28/22 12:00 Room Air 05/28/22 10:38 Room Air 05/28/22 09:37 Room Air 05/28/22 08:14 Room Air 05/28/22 07:37 Room Air 05/28/22 07:40 Room Air
[2022-05-28] MEDS: oxyCODONE HCL IR 5 MG TAB (IMMEDIATE RELEASE) PO PRN (20:38)
[2022-05-28] MEDS: lisinopril 10 MG TAB PO SCH (20:39)
[2022-05-28] MEDS: SIMVASTATIN 80 MG TAB PO SCH (20:39)
[2022-05-29] MEDS: LEVOTHYROXINE SODIUM 75 MCG TABLET PO SCH (05:42)
[2022-05-29] MEDS: oxyCODONE HCL IR 5 MG TAB (IMMEDIATE RELEASE) PO PRN ×3 (05:44→21:52)
[2022-05-29 07:11] LABS: Basophils # (auto) 0.06 K/uL (0-0.2); Basophils % (auto) 0.9 %; Eosinophils # (auto) 0.17 K/uL (0-0.50); Eosinophils % (auto) 2.6 %; Hematocrit (blood only) 44.5 % (34.1-44.9); Hemoglobin 14.6 g/dl (12.0-16.0); Immature Granulocytes # (auto) 0.01 K/uL (0.00-0.02); Immature Granulocytes % (auto) 0.2 %; Lymphocytes # (auto) 1.12 K/uL (1.2-3.4); Mean Corpuscular Hemoglobin 29.9 pg (25.0-34.0); Mean Corpuscular Hgb Conc 32.8 g/dL (32.0-36.0); Mean Platelet Volume 10.1 fL (9.4-12.3); Monocytes # (auto) 0.59 K/uL (0.24-0.82); Neutrophils # (auto) 4.63 K/uL (1.4-6.5); Neutrophils % (auto) 70.3 %; Platelet Count 202 K/uL (130-400); RDW Coefficient of Variation 12.4 % (11.5-14.5); RDW Standard Deviation 40.9 fL (36.4-46.3); Red Blood Count 4.89 M/uL (3.93-5.22); White Blood Count 6.58 K/ul (4.8-10.8)
[2022-05-29 07:34] LABS: BUN Creatinine Ratio 32.8 (10-20); Calcium 9.4 mg/dl (8.5-10.1); Est GFR (African American) 99.9 ml/min; Est GFR (Non-African American) 86.2 ml/min; Magnesium 1.7 mg/dl (1.7-2.4); Potassium 4.3 mmol/L (3.5-5.1)
[2022-05-29] MEDS: ASPIRIN 81 MG ECTAB PO SCH (08:49)
[2022-05-29] MEDS: CITALOPRAM 20 MG TAB PO SCH (08:49)
[2022-05-29] MEDS: CHOLECALCIFEROL 1,000 UNITS 25 MCG TAB PO SCH (08:49)
[2022-05-29] MEDS: lisinopril 10 MG TAB PO SCH ×2 (08:50→21:44)
--- NOTE | 2022-05-29 08:58 | Hospitalist Progress Note ---
Date of Service May 29, 2022 Assessment & Plan (1) Syncope: Plan: Syncope with collapse resulting in below injuries - is without recollection of event - will place on telemetry for 24 hours follow arrhythmia will obtain ECHO with hx of cardiomyopathy- no events on telemetry or arrhythmias detected - sinus margarita without ECG changes - hold her spironolactone - continue LARRY - consider Holter monitor (2) Fracture of lateral epicondyle of right humerus: Plan: Splint with sling- remains with posterior splint pain control with tylenol, ultram, oxy for severe pain as needed - ortho consult appreciated- follow up with ortho 1 week for re-eval and possible conversion to hinged brace - Platform walker is ordered- safe to weight bear on elbow with ortho recs (3) Closed fracture of left patella: Plan: with knee immobilizer in place- keep immobilizer on while out of bed and always with weight bearing ortho consulted to follow effusion and follow up - remain with immobilizer brace - follow up with ortho 1 week -Orthopedics recommends DVT prophylaxis (4) Nasal fracture: Plan: with patent nasal passages and without other orbital fractures - consider ent follow up after acute swelling decreased for eval if setting needed -No septal hematoma present so no prophylactic antibiotics needed (5) Vitamin D deficiency: Plan: continue vitamin d (6) Osteopenia: Plan: continue alendronate (7) Hypothyroidism: Plan: continue synthroid TSH here normal (8) Hypertension: Plan: continue ACEi hold spironolactone (9) Diabetes type 2, controlled: Plan: reported as well controlled not on agent at home follow with daily BMP goal <180mg/dl (10) Sleep apnea: Plan: CPAP of 7 at night, however with her nasal fracture and facial bruising will not be able to wear will place on nasal cannula at night for hypoxia if needed (11) Cardiomyopathy: Plan: ECHO with mildly reduced EF 45-50% with normal LV size - will repeat ECHO with syncope - abnormal stress echo in past done and cath with non obstructive CAD (12) Bradycardia: Plan: Chronic and stable without hemodynamic instability - BB in the past discontinued and remains with SB. Plan DVT prophylaxis-Lovenox 40 Mg SQ once daily-we will continue after discharge Disposition-continued stay, awaiting rehab placement Admission and Anticipated Discharge Date Admission Date: May 28, 2022 Supervising Physician Co-Signing Physician Notes MASON TENDER supervision Note: I did not personally see or examine the patient today, but I verified all posadas points of LIZZIE Johnson's assessment and plan with the following exceptions/additions: None Subjective HD #1 s/p syncopal episode on where she suffered facial contusion, chipped tooth, nasal fracture, right elbow injury with old vs. new epicondyle fracture, left patella fracture. She has had no events on telemetry overnight. Feels more generalized sore today, but is complaining of new pain on her left ankle on the top. Will obtain imaging of this to evaluate for frx. Overall pain is controlled and she is able to move her right arm well in the splint. Overall there was some concern on admission with her being able to care for herself and get around her house. Patient is totally independent at home and lives in a one story house with 2 steps to go up to get inside. She lives with her daughter who works from home as well as she states that she has other family in the area to help her if she needs. Following evaluation and discussion with director case and patient/daughters- patient feel rehab is better for her at this time. Continue to evaluate with placement. Await ECHO results for today. Likely remain in house for another day with evaluation of her physical capabilities and ability to use devices. Will start DVT prophylaxis as HGB stable and no change in nueroligcal status overnight Review of Systems Review of Systems: REVIEW OF SYSTEMS: Constitutional: No fever, sweats or chills Eyes: No diplopia, no worsening or blurred vision ENT: (+) chipped tooth, face bruising, eye bruising, normal hearing, no trouble swallowing Respiratory: No cough, sputum, dyspnea at rest or on exertion Cardiovascular: No chest pain, tightness or palpitations Abdomen: No pain, nausea, vomiting, diarrhea or constipation Musculoskeletal: (+) face pain, right arm pain, left knee pain, facial bruising, Neurologic: No weakness, numbness/tingling, or balance problems Psychiatric: No anxiety or depression Skin: No rash or itch Physical Exam Physical Exam: PHYSICAL EXAM: General: awake, alert, no apparent distress Head: Normocephalic, bruising to right eye, nose, lips and chin ENT: PERRL, EOMI, no pharyngeal exudate, mucous membranes moist Neuro: AAO x 3, speech clear and appropriate, strength intact bilaterally 5/5, sensation intact and equal all extremities and dermatomes, no pronator drift Chest: equal rise and fall of the chest, no accessory muscle use, no heaves or thrills, Clear to auscultation, on room air, Cardiac: Regular rate and rhythm, telemetry reviewed- sinus margarita, skin warm dry, cap refill <3 seconds, peripheral pulses +2 no JVD, no murmur, no JVD, no edema GI: NABS x 4 quadrants, soft, nontender to palpation, no rebound, guarding or tenderness : Spontaneously voiding, no pain, no CVA tenderness, MSK: No cervical spine tenderness, CT cleared, no midline spine tenderness, pelvis stable, no pain or deformity to lower legs or femur, pain with palpation to left top of ankle. Inversion and Eversion with good stregth as well as flexion and extension but tender of tendons. Psych: Normal mood and affect Results & Data Results & Data ([facility]) Vital Signs (Past 12 Hours) Vital Signs Temp Pulse Pulse Pulse Resp BP Pulse Ox 05/29/22 08:29 36.4 C L 58 L 20 141/88 H 92 05/29/22 07:39 58 L 05/29/22 03:02 36.7 C 61 18 117/78 92 05/28/22 23:30 36.7 C 84 18 125/68 90 05/28/22 23:06 53 L O2 Del Method 05/29/22 08:29 Room Air 05/29/22 07:39 05/29/22 03:02 Room Air 05/28/22 23:30 Room Air 05/28/22 23:06 Laboratory Results Laboratory Results - last 24 hr 05/28/22 05/28/22 05/29/22 11:40 13:40 06:57 WBC 6.58 RBC 4.89 Hgb 14.6 Hct 44.5 MCV 91.0 MCH 29.9 MCHC 32.8 RDW Std Deviation 40.9 RDW Coeff of Genaro 12.4 Plt Count 202 MPV 10.1 Immature Gran % (Auto) 0.2 Neut % (Auto) 70.3 Lymph % (Auto) 17.0 Swain % (Auto) 9.0 Eos % (Auto) 2.6 Baso % (Auto) 0.9 Neut # (Auto) 4.63 Lymph # (Auto) 1.12 L Swain # (Auto) 0.59 Eos # (Auto) 0.17 Baso # (Auto) 0.06 Immature Gran # (Auto) 0.01 Sodium Potassium Chloride Carbon Dioxide Anion Gap BUN Creatinine Est Cr Clr Drug Dosing Est GFR ( Amer) Est GFR (Non-Af Amer) BUN/Creatinine Ratio Glucose Calcium Magnesium Urine Color Yellow Urine Appearance Clear Urine pH 5.5 Ur Specific [place] 1.011 Urine Protein Negative Urine Glucose (UA) Negative Urine Ketones 1+ H Urine Blood Negative Urine Nitrite Negative Urine Bilirubin Negative Urine Urobilinogen Negative Ur Leukocyte Esterase Trace H Urine WBC (Auto) 1-5 Urine RBC (Auto) 0-4 U Hyaline Cast (Auto) 1-5 U Epithel Cells (Auto) >30 H Urine Bacteria (Auto) 1+ H SARS-CoV-2, RNA, NAAT NEGATIVE 05/29/22 06:57 WBC RBC Hgb Hct MCV MCH MCHC RDW Std Deviation RDW Coeff of [place] Plt Count MPV Immature Gran % (Auto) Neut % (Auto) Lymph % (Auto) Swain % (Auto) Eos % (Auto) Baso % (Auto) Neut # (Auto) Lymph # (Auto) Swain # (Auto) Eos # (Auto) Baso # (Auto) Immature Gran # (Auto) Sodium 136 Potassium 4.3 Chloride 104 Carbon Dioxide 25 Anion Gap 7 BUN 20 Creatinine 0.61 Est Cr Clr Drug Dosing 71.0 Est GFR ( Amer) 99.9 Est GFR (Non-Af Amer) 86.2 BUN/Creatinine Ratio 32.8 H Glucose 106 H Calcium 9.4 Magnesium 1.7 Urine Color Urine Appearance Urine pH Ur Specific [place] Urine Protein Urine Glucose (UA) Urine Ketones Urine Blood Urine Nitrite Urine Bilirubin Urine Urobilinogen Ur Leukocyte Esterase Urine WBC (Auto) Urine RBC (Auto) U Hyaline Cast (Auto) U Epithel Cells (Auto) Urine Bacteria (Auto) SARS-CoV-2, RNA, NAAT PG Care Time/CCT Total # of Minutes Spent Total Time Spent with Patient: Total time spent is greater than 50% in coordination of care (as documented) at patient's floor/unit and/or counseling patient: Coding Level of Care Code 28124 Subseq Hosp Care Lvl 3 Diagnoses Syncope R55 Fracture of lateral epicondyle of right humerus S42.431A Closed fracture of left patella S82.002A Nasal fracture S02.2XXA Vitamin D deficiency E55.9 Osteopenia M85.80 Hypothyroidism E03.9 Hypertension I10 Diabetes type 2, controlled E11.9 Sleep apnea G47.30 Cardiomyopathy I42.9 Bradycardia R00.1
[2022-05-29] MEDS ORDERED: lisinopril 20 MG TAB PO SCH (09:00)
--- NOTE | 2022-05-29 13:16 | XRay Report ---
XR ankle LT min 3V routine CLINICAL HISTORY: post fall 2 days- rule out frx COMPARISON: Leg length study September 12, 2013. FINDINGS: Alignment of the left ankle is anatomic. There is no acute fracture. Talar dome is intact. No osseous lesion is identified. IMPRESSION: No acute fracture or dislocation within the left ankle. ACT 112: Negative or not required by law. Electronically signed by: Lauri Quiñonez M.D. 05/29/2022 1:14 PM
[2022-05-29] MEDS: ENOXAPARIN INJ 40 MG/0.4 ML SYR SQ SCH (13:20)
[2022-05-29] MEDS: ACETAMINOPHEN 325 MG TAB PO PRN (19:19)
--- NOTE | 2022-05-29 19:38 | XCELERA ---
[id number]
[2022-05-29] MEDS: SIMVASTATIN 80 MG TAB PO SCH (21:44)
--- NOTE | 2022-05-30 05:23 | Electrocardiogram Report ---
Test Reason : Blood Pressure : / mmHG Vent. Rate : 058 BPM Atrial Rate : 058 BPM P-R Int : 140 ms QRS Dur : 090 ms QT Int : 450 ms P-R-T Axes : 050 -39 -04 degrees QTc Int : 441 ms Sinus bradycardia Left axis deviation Minimal voltage criteria for LVH, may be normal variant Abnormal ECG When compared with ECG of 28-SEP-2012 09:59, No significant change was found Confirmed by Khang Rivas ([id number]) on 05/30/2022 5:23:27 AM Referred By: REFERRED SELF Confirmed By:Khang Rivas
[2022-05-30] MEDS: LEVOTHYROXINE SODIUM 75 MCG TABLET PO SCH (05:55)
[2022-05-30] MEDS: ACETAMINOPHEN 325 MG TAB PO PRN (06:08)
[2022-05-30 07:35] LABS: Basophils # (auto) 0.05 K/uL (0-0.2); Basophils % (auto) 0.9 %; Eosinophils % (auto) 3.6 %; Hemoglobin 14.4 g/dl (12.0-16.0); Immature Granulocytes # (auto) 0.01 K/uL (0.00-0.02); Immature Granulocytes % (auto) 0.2 %; Lymphocytes # (auto) 1.45 K/uL (1.2-3.4); Lymphocytes % (auto) 26.4 %; Mean Corpuscular Hemoglobin 29.9 pg (25.0-34.0); Mean Corpuscular Hgb Conc 32.7 g/dL (32.0-36.0); Mean Corpuscular Volume 91.3 fL (80.0-100.0); Mean Platelet Volume 10.2 fL (9.4-12.3); Monocytes # (auto) 0.58 K/uL (0.24-0.82); Monocytes % (auto) 10.6 %; Neutrophils % (auto) 58.3 %; Platelet Count 184 K/uL (130-400); RDW Coefficient of Variation 12.4 % (11.5-14.5); RDW Standard Deviation 41.5 fL (36.4-46.3); Red Blood Count 4.82 M/uL (3.93-5.22); White Blood Count 5.49 K/ul (4.8-10.8)
[2022-05-30 07:59] LABS: BUN Creatinine Ratio 33.8 (10-20); Creatinine Clr Calc Pharmacy 66.6 ml/min; Est GFR (African American) 97.9 ml/min; Est GFR (Non-African American) 84.4 ml/min; Magnesium 1.7 mg/dl (1.7-2.4); Potassium 4.3 mmol/L (3.5-5.1)
[2022-05-30] MEDS: CHOLECALCIFEROL 1,000 UNITS 25 MCG TAB PO SCH (09:09)
[2022-05-30] MEDS: lisinopril 10 MG TAB PO SCH ×2 (09:09→21:13)
[2022-05-30] MEDS: CITALOPRAM 20 MG TAB PO SCH (09:09)
[2022-05-30] MEDS: ASPIRIN 81 MG ECTAB PO SCH (09:09)
[2022-05-30] MEDS: ENOXAPARIN INJ 40 MG/0.4 ML SYR SQ SCH (09:12)
--- NOTE | 2022-05-30 11:51 | Hospitalist Progress Note ---
Date of Service May 30, 2022 Assessment & Plan (1) Syncope: Plan: Syncope with collapse resulting in below injuries - is without recollection of event - will place on telemetry for 24 hours follow arrhythmia will obtain ECHO with hx of cardiomyopathy- no events on telemetry or arrhythmias detected - sinus margarita without ECG changes - hold her spironolactone - continue LARRY - consider Holter monitor (2) Fracture of lateral epicondyle of right humerus: Plan: Splint with sling- remains with posterior splint pain control with tylenol, ultram, oxy for severe pain as needed - ortho consult appreciated- follow up with ortho 1 week for re-eval and possible conversion to hinged brace - Platform walker is ordered- safe to weight bear on elbow with ortho recs (3) Headache: Plan: 05/30 patient reports "fuzzy vision" with headache bifrontal this morning upon awakening at ~730 updated by nursing at 1030 after she told her - patient was given tyelonol and both have resolved - Patient has no increase in swelling or edema to the left eye - nuerological exam intact, visual acuity intact, and EOM are intact - discussed with patient CTA of the head and neck and she declined - She does report of history of migraine and has been associated with blurry vision and photophobia (4) Closed fracture of left patella: Plan: with knee immobilizer in place- keep immobilizer on while out of bed and always with weight bearing ortho consulted to follow effusion and follow up - remain with immobilizer brace - follow up with ortho 1 week - DVT prophylaxis while at rehab recommended by ortho- provide at discharge (5) Nasal fracture: Plan: with patent nasal passages and without other orbital fractures - consider ent follow up after acute swelling decreased for eval if setting needed -No septal hematoma present so no prophylactic antibiotics needed (6) Vitamin D deficiency: Plan: continue vitamin d (7) Osteopenia: Plan: continue alendronate (8) Hypothyroidism: Plan: continue synthroid TSH here normal (9) Hypertension: Plan: continue ACEi hold spironolactone (10) Diabetes type 2, controlled: Plan: reported as well controlled not on agent at home follow with daily BMP goal <180mg/dl (11) Sleep apnea: Plan: CPAP of 7 at night, however with her nasal fracture and facial bruising will not be able to wear will place on nasal cannula at night for hypoxia if needed (12) Cardiomyopathy: Plan: Repeat ECHO with improved EF from previous - now with EF normal at 55-60% and noral LV size with no RWMA - no events on telemetry for 48 hours- transition to medical floor - abnormal stress echo in past done and cath with non obstructive CAD - Continue to hold Spironolactone - remains on LARRY 10 mg BID (13) Bradycardia: Plan: Chronic and stable without hemodynamic instability - BB in the past discontinued and remains with SB. Plan DVT prophylaxis-Lovenox 40 Mg SQ once daily-we will continue after discharge Disposition-continued stay, awaiting rehab placement Admission and Anticipated Discharge Date Admission Date: May 28, 2022 Supervising Physician Co-Signing Physician Notes [employer] supervision Note: I did not personally see or examine the patient today, but I verified all posadas points of LIZZIE Johnson's assessment and plan with the following exceptions/additions: None Subjective HD #2 s/p syncopal episode on uu 22 where she suffered facial contusion, chipped tooth, nasal fracture, right elbow injury with old vs. new epicondyle fracture, left patella fracture. She has had no events on telemetry overnight. Feels more generalized sore today, but is complaining of new pain on her left ankle on the top. Will obtain imaging of this to evaluate for frx. Overall pain is controlled and she is able to move her right arm well in the splint. Overall there was some concern on admission with her being able to care for herself and get around her house. Patient is totally independent at home and lives in a one story house with 2 steps to go up to get inside. She lives with her daughter who works from home as well as she states that she has other family in the area to help her if she needs. Following evaluation and discussion with case investigator and patient/daughters- patient feel rehab is better for her at this time. Continue to evaluate with placement. ECHO 05/29 with normal EF and LV function ad size, elevated RVSP (she does wear CPAP at home), normal valves No events on Telemetry 48 hours- downgraded to medical surgical 05/30- Had onset of fuzzy vision and headache this morning upon awakening was given tylenol and resolved. Review of Systems Review of Systems: REVIEW OF SYSTEMS: Constitutional: No fever, sweats or chills Eyes: No diplopia, no worsening or blurred vision ENT: (+) chipped tooth, face bruising, eye bruising, normal hearing, no trouble swallowing Respiratory: No cough, sputum, dyspnea at rest or on exertion Cardiovascular: No chest pain, tightness or palpitations Abdomen: No pain, nausea, vomiting, diarrhea or constipation Musculoskeletal: (+) face pain, right arm pain, left knee pain, facial bruising , Neurologic: No weakness, numbness/tingling, or balance problems Psychiatric: No anxiety or depression Skin: No rash or itch Physical Exam Physical Exam: PHYSICAL EXAM: General: awake, alert, no apparent distress Head: Normocephalic, bruising to right eye, nose, lips and chin ENT: PERRL, EOMI, no pharyngeal exudate, mucous membranes moist Neuro: AAO x 3, speech clear and appropriate, strength intact bilaterally 5/5, sensation intact and equal all extremities and dermatomes, no pronator drift Chest: equal rise and fall of the chest, no accessory muscle use, no heaves or thrills, Clear to auscultation, on room air, Cardiac: Regular rate and rhythm, telemetry reviewed- sinus margarita, skin warm dry, cap refill <3 seconds, peripheral pulses +2 no JVD, no murmur, no JVD, no edema GI: NABS x 4 quadrants, soft, nontender to palpation, no rebound, guarding or tenderness : Spontaneously voiding, no pain, no CVA tenderness, MSK: No cervical spine tenderness, CT cleared, no midline spine tenderness, pelvis stable, no pain or deformity to lower legs or femur, pain with palpation to left top of ankle. Inversion and Eversion with good stregth as well as flexion and extension but tender of tendons. Psych: Normal mood and affect Results & Data Results & Data ([facility]) Vital Signs (Past 12 Hours) Vital Signs Temp Pulse Pulse Resp BP Pulse Ox O2 Del Method 05/30/22 08:00 Room Air 05/30/22 08:00 83 05/30/22 06:46 36.5 C 52 L 18 135/66 90 Room Air 05/30/22 03:53 36.5 C 59 L 18 134/74 90 Room Air Laboratory Results Abnormal lab results 05/30/22 Range/Units 06:49 BUN/Creatinine Ratio 33.8 H (10-20) Glucose 103 H (70-99(Fasting)) mg/dl Medications Administered Home Medications jlkukvqz-qyo-zqxvt acid 0.4 mg-lycopene 300 mcg-lutein 250 mcg tablet (Centrum Silver) 1 tab PO DAILY 07/11/19 [History Confirmed 05/28/22] cholecalciferol (vitamin D3) 50 mcg (2,000 unit) capsule 4,000 units PO DAILY #30 caps 08/08/19 [Rx Confirmed 05/28/22] albuterol sulfate 90 mcg/actuation aerosol inhaler (Ventolin HFA) 2 puff inhalation Q6H PRN shortness of breath or wheezing #8.5 grams 05/22/21 [Rx Confirmed 05/28/22] citalopram 20 mg tablet 30 mg PO DAILY #135 tabs 05/30/21 [Rx Confirmed 05/28/22] aspirin 325 mg tablet 325 mg PO DAILY #30 tabs 06/11/21 [Rx Confirmed 05/28/22] levothyroxine 75 mcg tablet 75 mcg PO DAILY #90 tabs 06/20/21 [Rx Confirmed 05/28/22] simvastatin 80 mg tablet 80 mg PO HS #90 tabs 06/20/21 [Rx Confirmed 05/28/22] spironolactone 25 mg tablet 25 mg PO DAILY #90 tabs 09/02/21 [Rx Confirmed 05/28/22] alendronate 35 mg tablet 35 mg PO .COMPLEX #4 tabs 03/31/22 [Rx Confirmed 05/28/22] lisinopril 10 mg tablet 20 mg PO QAM 05/28/22 [History Confirmed 05/28/22] Active Medications Acetaminophen (Acetaminophen 325 Mg Tab) 650 mg PO Q4H PRN PRN Reason: Pain or Fever Stop: 06/27/22 16:43 Last Admin: 05/30/22 06:08 Dose: 650 mg Albuterol (Albuterol Hfa 8 Gm Inhaler) 2 puffs INH Q6H PRN PRN Reason: shortness of breath or wheezing Stop: 06/27/22 16:43 Aspirin (Aspirin 81 Mg Ectab) 81 mg PO QAM [facility] Stop: 06/28/22 08:59 Last Admin: 05/30/22 09:09 Dose: 81 mg Citalopram Hydrobromide (Citalopram 20 Mg Tab) 30 mg PO DAILY [facility] Stop: 06/28/22 08:59 Last Admin: 05/30/22 09:09 Dose: 30 mg Enoxaparin Sodium (Enoxaparin Inj 40 Mg/0.4 Ml Syr) 40 mg SQ QAM [facility] Stop: 06/28/22 09:44 Last Admin: 05/30/22 09:12 Dose: 40 mg Levothyroxine Sodium (Levothyroxine Sodium 75 Mcg Tablet) 75 mcg PO DAILYBB [facility] Stop: 06/28/22 06:29 Last Admin: 05/30/22 05:55 Dose: 75 mcg Lisinopril (Lisinopril 10 Mg Tab) 10 mg PO BID [facility] Stop: 06/27/22 20:59 Last Admin: 05/30/22 09:09 Dose: 10 mg Miscellaneous (Alendronate- Order Awaiting Action) 1 each N/A QS [facility] Stop: 06/28/22 00:00 Last Admin: 05/30/22 09:06 Dose: Not Given Oxycodone HCl (Oxycodone Hcl Ir 5 Mg Tab (Immediate Release)) 5 mg PO Q8 PRN PRN Reason: Severe Pain Stop: 06/11/22 16:43 Last Admin: 05/29/22 21:52 Dose: 5 mg Simvastatin (Simvastatin 80 Mg Tab) 80 mg PO HS [facility] Stop: 06/27/22 20:59 Last Admin: 05/29/22 21:44 Dose: 80 mg Tramadol HCl (Tramadol Hcl 50 Mg Tablet) 50 mg PO Q6 PRN PRN Reason: Moderate Pain Stop: 06/27/22 16:43 Vitamin D (Cholecalciferol 1,000 Units 25 Mcg Tab) 4,000 units PO DAILY [facility] Stop: 06/28/22 08:59 Last Admin: 05/30/22 09:09 Dose: 4,000 units PG Care Time/CCT Total # of Minutes Spent Total Time Spent with Patient: Total time spent is greater than 50% in coordination of care (as documented) at patient's floor/unit and/or counseling patient: Coding Level of Care Code 99458 Subseq Hosp Care Lvl 3 Diagnoses Syncope R55 Fracture of lateral epicondyle of right humerus S42.431A Headache R51.9 Closed fracture of left patella S82.002A Nasal fracture S02.2XXA Vitamin D deficiency E55.9 Osteopenia M85.80 Hypothyroidism E03.9 Hypertension I10 Diabetes type 2, controlled E11.9 Sleep apnea G47.30 Cardiomyopathy I42.9 Bradycardia R00.1
[2022-05-30] MEDS: SIMVASTATIN 80 MG TAB PO SCH (21:13)
[2022-05-31] MEDS: ACETAMINOPHEN 325 MG TAB PO PRN ×2 (02:24→21:13)
[2022-05-31] MEDS: LEVOTHYROXINE SODIUM 75 MCG TABLET PO SCH (05:33)
[2022-05-31 05:47] LABS: Basophils # (auto) 0.07 K/uL (0-0.2); Basophils % (auto) 1.1 %; Eosinophils # (auto) 0.21 K/uL (0-0.50); Eosinophils % (auto) 3.2 %; Hematocrit (blood only) 46.5 % (34.1-44.9); Hemoglobin 15.2 g/dl (12.0-16.0); Immature Granulocytes # (auto) 0.01 K/uL (0.00-0.02); Immature Granulocytes % (auto) 0.2 %; Lymphocytes # (auto) 1.65 K/uL (1.2-3.4); Mean Corpuscular Hemoglobin 29.3 pg (25.0-34.0); Mean Corpuscular Hgb Conc 32.7 g/dL (32.0-36.0); Mean Corpuscular Volume 89.6 fL (80.0-100.0); Mean Platelet Volume 10.2 fL (9.4-12.3); Monocytes # (auto) 0.54 K/uL (0.24-0.82); Monocytes % (auto) 8.2 %; Neutrophils # (auto) 4.11 K/uL (1.4-6.5); Neutrophils % (auto) 62.3 %; Platelet Count 224 K/uL (130-400); RDW Coefficient of Variation 12.3 % (11.5-14.5); RDW Standard Deviation 40.3 fL (36.4-46.3); Red Blood Count 5.19 M/uL (3.93-5.22); White Blood Count 6.59 K/ul (4.8-10.8)
[2022-05-31 06:17] LABS: BUN Creatinine Ratio 30.4 (10-20); Calcium 10.3 mg/dl (8.5-10.1); Creatinine Clr Calc Pharmacy 62.7 ml/min; Est GFR (Non-African American) 82.8 ml/min; Magnesium 1.8 mg/dl (1.7-2.4); Potassium 4.3 mmol/L (3.5-5.1)
[2022-05-31] MEDS: CHOLECALCIFEROL 1,000 UNITS 25 MCG TAB PO SCH (08:20)
[2022-05-31] MEDS: ASPIRIN 81 MG ECTAB PO SCH (08:20)
[2022-05-31] MEDS: lisinopril 10 MG TAB PO SCH ×2 (08:20→21:06)
[2022-05-31] MEDS: CITALOPRAM 20 MG TAB PO SCH (08:20)
[2022-05-31] MEDS: ENOXAPARIN INJ 40 MG/0.4 ML SYR SQ SCH (08:21)
--- NOTE | 2022-05-31 09:49 | Hospitalist Progress Note ---
Date of Service May 31, 2022 Assessment & Plan (1) Syncope: Plan: Syncope with collapse resulting in below injuries - is without recollection of event - will place on telemetry for 24 hours follow arrhythmia will obtain ECHO with hx of cardiomyopathy- no events on telemetry or arrhythmias detected - sinus margarita without ECG changes - hold her spironolactone - continue LARRY - consider Holter monitor no further episodes spironolactone remains off (2) Fracture of lateral epicondyle of right humerus: Plan: Splint with sling- remains with posterior splint pain control with tylenol, ultram, oxy for severe pain as needed - ortho consult appreciated- follow up with ortho 1 week for re-eval and possible conversion to hinged brace - Platform walker is ordered- safe to weight bear on elbow with ortho recs (3) Closed fracture of left patella: Plan: with knee immobilizer in place- keep immobilizer on while out of bed and always with weight bearing ortho consulted to follow effusion and follow up - remain with immobilizer brace - follow up with ortho 1 week - DVT prophylaxis while at rehab recommended by ortho- provide at discharge (4) Nasal fracture: Plan: with patent nasal passages and without other orbital fractures - consider ent follow up after acute swelling decreased for eval if setting needed -No septal hematoma present so no prophylactic antibiotics needed (5) Vitamin D deficiency: Plan: continue vitamin d (6) Osteopenia: Plan: continue alendronate (7) Sleep apnea: Plan: CPAP of 7 at night, however with her nasal fracture and facial bruising will not be able to wear will place on nasal cannula at night for hypoxia if needed (8) Cardiomyopathy: Plan: Repeat ECHO with improved EF from previous - now with EF normal at 55-60% and noral LV size with no RWMA - no events on telemetry for 48 hours- transition to medical floor - abnormal stress echo in past done and cath with non obstructive CAD - Continue to hold Spironolactone - remains on LARRY 10 mg BID (9) Hypertension: Plan: continue ACEi hold spironolactone (10) Hypothyroidism: Plan: continue synthroid TSH here normal (11) Bradycardia: Plan: Chronic and stable without hemodynamic instability - BB in the past discontinued and remains with SB. (12) Diabetes type 2, controlled: Plan: reported as well controlled not on agent at home follow with daily BMP goal <180mg/dl - no intervention needed while in house to this point (13) Headache: Plan: 05/30 patient reports "fuzzy vision" with headache bifrontal this morning upon awakening at ~730 updated by nursing at 1030 after she told her - patient was given tyelonol and both have resolved - Patient has no increase in swelling or edema to the left eye - nuerological exam intact, visual acuity intact, and EOM are intact - discussed with patient CTA of the head and neck and she declined - She does report of history of migraine and has been associated with blurry vision and photophobia - no other eppisode noted Plan DVT prophylaxis-Lovenox 40 Mg SQ once daily-we will continue after discharge Disposition-continued stay, awaiting rehab placement- [facility] with back up [facility] Admission and Anticipated Discharge Date Admission Date: May 28, 2022 Supervising Physician Co-Signing Physician Notes LIZZIE supervision Note: I did not personally see or examine the patient today, but I verified all posadas points of LIZZIE Johnson's assessment and plan with the following exceptions /additions: None Subjective HD #3 s/p syncopal episode on where she suffered facial contusion, chipped tooth, nasal fracture, right elbow injury with old vs. new epicondyle fracture, left patella fracture. She has had no events on telemetry overnight. Feels more generalized sore today, but is complaining of new pain on her left ankle on the top. Will obtain imaging of this to evaluate for frx. Overall pain is controlled and she is able to move her right arm well in the splint. Overall there was some concern on admission with her being able to care for herself and get around her house. Patient is totally independent at home and lives in a one story house with 2 steps to go up to get inside. She lives with her daughter who works from home as well as she states that she has other family in the area to help her if she needs. Following evaluation and discussion with rn case mgr and patient/daughters- patient feel rehab is better for her at this time. Continue to evaluate with placement. ECHO 05/29 with normal EF and LV function ad size, elevated RVSP (she does wear CPAP at home), normal valves No events on Telemetry 48 hours- downgraded to medical surgical 05/31 no events overnight pain controlled, she is having difficulty with not being able to get up and move around as much as she would like because of her splint, will discuss with nursing to work with her getting out of room and ambulate more as she is able. Review of Systems Review of Systems: REVIEW OF SYSTEMS: Constitutional: No fever, sweats or chills Eyes: No diplopia, no worsening or blurred vision ENT: (+) chipped tooth, face bruising, eye bruising, normal hearing, no trouble swallowing Respiratory: No cough, sputum, dyspnea at rest or on exertion Cardiovascular: No chest pain, tightness or palpitations Abdomen: No pain, nausea, vomiting, diarrhea or constipation Musculoskeletal: (+) face pain, right arm pain, left knee pain, facial bruising, Neurologic: No weakness, numbness/tingling, or balance problems Psychiatric: No anxiety or depression Skin: No rash or itch Physical Exam Physical Exam: PHYSICAL EXAM: General: awake, alert, no apparent distress Head: Normocephalic, bruising to right eye, nose, lips and chin ENT: PERRL, EOMI, no pharyngeal exudate, mucous membranes moist Neuro: AAO x 3, speech clear and appropriate, strength intact bilaterally 5/5, sensation intact and equal all extremities and dermatomes, no pronator drift Chest: equal rise and fall of the chest, no accessory muscle use, no heaves or thrills, Clear to auscultation, on room air, Cardiac: Regular rate and rhythm, telemetry reviewed- sinus margarita, skin warm dry, cap refill <3 seconds, peripheral pulses +2 no JVD, no murmur, no JVD, no edema GI: NABS x 4 quadrants, soft, nontender to palpation, no rebound, guarding or tenderness : Spontaneously voiding, no pain, no CVA tenderness, MSK: No cervical spine tenderness, CT cleared, no midline spine tenderness, pelvis stable, no pain or deformity to lower legs or femur, pain with palpation to left top of ankle. Inversion and Eversion with good stregth as well as flexion and extension but tender of tendons. Psych: Normal mood and affect Results & Data Results & Data ([facility]) Vital Signs (Past 12 Hours) Vital Signs Temp Pulse Resp BP Pulse Ox O2 Del Method 05/31/22 08:06 36.5 C 50 L 18 158/78 H 90 Room Air 05/30/22 23:34 36.7 C 57 L 18 165/80 H 91 Room Air Laboratory Results Laboratory Results - last 24 hr 05/31/22 05/31/22 05:10 05:10 WBC 6.59 RBC 5.19 Hgb 15.2 Hct 46.5 H MCV 89.6 MCH 29.3 MCHC 32.7 RDW Std Deviation 40.3 RDW Coeff of Genaro 12.3 Plt Count 224 MPV 10.2 Immature Gran % (Auto) 0.2 Neut % (Auto) 62.3 Lymph % (Auto) 25.0 Bennett % (Auto) 8.2 Eos % (Auto) 3.2 Baso % (Auto) 1.1 Neut # (Auto) 4.11 Lymph # (Auto) 1.65 Bennett # (Auto) 0.54 Eos # (Auto) 0.21 Baso # (Auto) 0.07 Immature Gran # (Auto) 0.01 Sodium 138 Potassium 4.3 Chloride 103 Carbon Dioxide 29 Anion Gap 6 BUN 21 Creatinine 0.69 Est Cr Clr Drug Dosing 62.7 Est GFR ( Amer) 96.0 Est GFR (Non-Af Amer) 82.8 BUN/Creatinine Ratio 30.4 H Glucose 103 H Calcium 10.3 H Magnesium 1.8 Medications Administered Acetaminophen (Acetaminophen 325 Mg Tab) 650 mg PO Q4H PRN PRN Reason: Pain or Fever Stop: 06/27/22 16:43 Last Admin: 05/31/22 02:24 Dose: 650 mg Documented By: Admin: 05/30/22 06:08 Dose: 650 mg Documented By: Admin: 05/29/22 19:19 Dose: 650 mg Documented By: HODAN Aspirin (Aspirin 81 Mg Ectab) 81 mg PO QAM [facility] Stop: 06/28/22 08:59 Last Admin: 05/31/22 08:20 Dose: 81 mg Documented By: Admin: 05/30/22 09:09 Dose: 81 mg Documented By: Admin: 05/29/22 08:49 Dose: 81 mg Documented By: HODAN Citalopram Hydrobromide (Citalopram 20 Mg Tab) 30 mg PO DAILY [facility] Stop: 06/28/22 08:59 Last Admin: 05/31/22 08:20 Dose: 30 mg Documented By: Admin: 05/30/22 09:09 Dose: 30 mg Documented By: Admin: 05/29/22 08:49 Dose: 30 mg Documented By: HODAN Enoxaparin Sodium (Enoxaparin Inj 40 Mg/0.4 Ml Syr) 40 mg SQ QAM [facility] Stop: 06/28/22 09:44 Last Admin: 05/31/22 08:21 Dose: 40 mg Documented By: Admin: 05/30/22 09:12 Dose: 40 mg Documented By: Admin: 05/29/22 13:20 Dose: 40 mg Documented By: HODAN Levothyroxine Sodium (Levothyroxine Sodium 75 Mcg Tablet) 75 mcg PO DAILYBB [facility] Stop: 06/28/22 06:29 Last Admin: 05/31/22 05:33 Dose: 75 mcg Documented By: Admin: 05/30/22 05:55 Dose: 75 mcg Documented By: Admin: 05/29/22 05:42 Dose: 75 mcg Documented By: BLANCHE Lisinopril (Lisinopril 10 Mg Tab) 10 mg PO BID [facility] Stop: 06/27/22 20:59 Last Admin: 05/31/22 08:20 Dose: 10 mg Documented By: Admin: 05/30/22 21:13 Dose: 10 mg Documented By: Admin: 05/30/22 09:09 Dose: 10 mg Documented By: Admin: 05/29/22 21:44 Dose: 10 mg Documented By: Admin: 05/29/22 08:50 Dose: 10 mg Documented By: Admin: 05/28/22 20:39 Dose: 10 mg Documented By: BLANCHE Miscellaneous (Alendronate- Order Awaiting Action) 1 each N/A QS [facility] Stop: 06/28/22 00:00 Last Admin: 05/31/22 08:19 Dose: Not Given Documented By: Admin: 05/30/22 21:16 Dose: Not Given Documented By: Admin: 05/30/22 15:43 Dose: Not Given Documented By: Admin: 05/30/22 09:06 Dose: Not Given Documented By: Admin: 05/29/22 21:44 Dose: Not Given Documented By: Admin: 05/29/22 17:31 Dose: Not Given Documented By: Admin: 05/29/22 08:47 Dose: Not Given Documented By: Admin: 05/28/22 23:07 Dose: Not Given Documented By: BLANCHE Oxycodone HCl (Oxycodone Hcl Ir 5 Mg Tab (Immediate Release)) 5 mg PO Q8 PRN PRN Reason: Severe Pain Stop: 06/11/22 16:43 Last Admin: 05/29/22 21:52 Dose: 5 mg Documented By: Admin: 05/29/22 13:20 Dose: 5 mg Documented By: Admin: 05/29/22 05:44 Dose: 5 mg Documented By: Admin: 05/28/22 20:38 Dose: 5 mg Documented By: BLANCHE Simvastatin (Simvastatin 80 Mg Tab) 80 mg PO HS [facility] Stop: 06/27/22 20:59 Last Admin: 05/30/22 21:13 Dose: 80 mg Documented By: Admin: 05/29/22 21:44 Dose: 80 mg Documented By: Admin: 05/28/22 20:39 Dose: 80 mg Documented By: BLANCHE Vitamin D (Cholecalciferol 1,000 Units 25 Mcg Tab) 4,000 units PO DAILY [facility] Stop: 06/28/22 08:59 Last Admin: 05/31/22 08:20 Dose: 4,000 units Documented By: Admin: 05/30/22 09:09 Dose: 4,000 units Documented By: Admin: 05/29/22 08:49 Dose: 4,000 units Documented By: HODAN Discontinued Medications Acetaminophen (Acetaminophen 500 Mg Tab) 1,000 mg PO NOW STA Stop: 05/28/22 08:30 Last Admin: 05/28/22 09:11 Dose: 1,000 mg Documented By: PEYTON PG Care Time/CCT Total # of Minutes Spent Total Time Spent with Patient: Total time spent is greater than 50% in coordination of care (as documented) at patient's floor/unit and/or counseling patient: Coding Level of Care Code 31044 Subseq Hosp Care Lvl 3 Diagnoses Syncope R55 Fracture of lateral epicondyle of right humerus S42.431A Closed fracture of left patella S82.002A Nasal fracture S02.2XXA Vitamin D deficiency E55.9 Osteopenia M85.80 Sleep apnea G47.30 Cardiomyopathy I42.9 Hypertension I10 Hypothyroidism E03.9 Bradycardia R00.1 Diabetes type 2, controlled E11.9 Headache R51.9
[2022-05-31] MEDS: SIMVASTATIN 80 MG TAB PO SCH (21:06)
[2022-06-01] MEDS: LEVOTHYROXINE SODIUM 75 MCG TABLET PO SCH (05:44)
[2022-06-01] MEDS: ENOXAPARIN INJ 40 MG/0.4 ML SYR SQ SCH (08:49)
[2022-06-01] MEDS: ASPIRIN 81 MG ECTAB PO SCH (08:49)
[2022-06-01] MEDS: CITALOPRAM 20 MG TAB PO SCH (08:49)
[2022-06-01] MEDS: CHOLECALCIFEROL 1,000 UNITS 25 MCG TAB PO SCH (08:49)
[2022-06-01] MEDS: lisinopril 10 MG TAB PO SCH ×2 (08:50→21:44)
--- NOTE | 2022-06-01 17:23 | Hospitalist Progress Note ---
Date of Service June 01, 2022 Assessment & Plan (1) Syncope: Plan: Syncope with collapse resulting in below injuries. Occurred while bending over to get something off the ground-possibly vasovagal versus orthostatic Not anemic, no renal failure or dehydration - is without recollection of event -No events on telemetry, echo with preserved EF, no regional wall motion abnormalities, no valvular abnormalities, mild pulmonary hypertension with RVSP 43 mmHg - sinus margarita without ECG changes -Continue to hold spironolactone - continue ACEi - consider cardiac event monitor after discharge (2) Fracture of lateral epicondyle of right humerus: Plan: Splint with sling- remains with posterior splint pain control with tylenol, ultram, oxy for severe pain as needed - ortho consult appreciated- follow up with ortho 1 week for re-eval and possible conversion to hinged brace - Platform walker is ordered- safe to weight bear on elbow with ortho recs (3) Closed fracture of left patella: Plan: with knee immobilizer in place- keep immobilizer on while out of bed and always with weight bearing ortho consulted to follow effusion and follow up - remain with immobilizer brace - follow up with ortho 1 week - DVT prophylaxis while at rehab recommended by ortho- provide at discharge (4) Nasal fracture: Plan: with patent nasal passages and without other orbital fractures - consider ent follow up after acute swelling decreased for eval if setting nee ded -No septal hematoma present so no prophylactic antibiotics needed (5) Vitamin D deficiency: Plan: continue vitamin d (6) Osteopenia: Plan: continue alendronate (7) Sleep apnea: Plan: CPAP of 7 at night, however with her nasal fracture and facial bruising will not be able to wear will place on nasal cannula at night for hypoxia if needed (8) Cardiomyopathy: Plan: Repeat ECHO with improved EF from previous - now with EF normal at 55-60% and noral LV size with no RWMA - no events on telemetry for 48 hours- transition to medical floor - abnormal stress echo in past done and cath with non obstructive CAD - Continue to hold Spironolactone - remains on ACEi 10 mg BID (9) Hypertension: Plan: continue ACEi hold spironolactone (10) Hypothyroidism: Plan: continue synthroid TSH here normal (11) Bradycardia: Plan: Chronic and stable without hemodynamic instability - BB in the past discontinued and remains with SB. (12) Diabetes type 2, controlled: Plan: reported as well controlled not on agent at home follow with daily BMP goal <180mg/dl - no intervention needed while in house to this point (13) Headache: Plan: 05/30 patient reports "fuzzy vision" with headache bifrontal upon awakening - patient was given Tylenol and both have resolved - Patient has no increase in swelling or edema to the left eye - neurological exam intact, visual acuity intact, and EOM are intact - discussed with patient CTA of the head and neck and she declined - She does report of history of migraine and has been associated with blurry vision and photophobia - no other episode noted since that time Plan DVT prophylaxis-Lovenox 40 Mg SQ once daily-we will continue after discharge Disposition-continued stay, awaiting rehab placement-insurance authorization pending for [facility] with back up as SNF at [facility] bed Admission and Anticipated Discharge Date Admission Date: May 28, 2022 Subjective Patient has no complaints. She has no pain anywhere unless she touches her nose. Knows that she needs to go to rehab and is anxious to get out of the hospital soon as possible. No chest pain or shortness of breath, no nausea. She is tolerating p.o. Moving her bowels and making urine. Review of Systems Review of Systems: All systems reviewed & are unremarkable except as noted in HPI & below Physical Exam Constitutional: WD/WN, vitals as above Eyes: + anicteric sclerae, EOM intact bilaterally and + periorbital abnorm ality (Periorbital ecchymosis bilaterally) ENMT: external ear and nose normal, oropharynx normal (With ecchymosis on cheeks bilaterally) Neck: trachea midline, no thyromegaly Respiratory: normal respiratory effort, lungs clear to auscultation Cardiovascular: RRR, no murmur, no edema Chest (Breasts): Chest: normal inspection of chest Gastrointestinal (Abdomen): normal bowel sounds, soft, nontender, no hepatosplenomegaly Musculoskeletal: Extremities: + extremities abnormal to inspection (RU E in posterior splint with Sandor wrap, LUE in knee immobilizer, distal NVI), no cyanosis and no clubbing Skin: no rashes, warm and dry Neurologic: moves all extremities and awake; no focal motor deficits Psychiatric: A+Ox3, euthymic affect Lymphatic: no lymphedema Results & Data Results & Data ([facility] [place]) Vital Signs (Past 12 Hours) Vital Signs Temp Pulse Resp BP Pulse Ox O2 Del Method 06/01/22 15:44 36.5 C 58 L 20 123/78 94 Room Air 06/01/22 07:57 36.5 C 63 20 139/84 95 Room Air PG Care Time/CCT Total # of Minutes Spent Total Time Spent with Patient: Total time spent is greater than 50% in coordination of care (as documented) at patient's floor/unit and/or counseling patient: Coding Level of Care Code 19330 Subseq Hosp Care Lvl 1 Diagnoses Syncope R55 Fracture of lateral epicondyle of right humerus S42.431A Closed fracture of left patella S82.002A Nasal fracture S02.2XXA Vitamin D deficiency E55.9 Osteopenia M85.80 Sleep apnea G47.30 Cardiomyopathy I42.9 Hypertension I10 Hypothyroidism E03.9 Bradycardia R00.1 Diabetes type 2, controlled E11.9 Headache R51.9
[2022-06-01] MEDS: SIMVASTATIN 80 MG TAB PO SCH (21:44)
[2022-06-01] MEDS: ACETAMINOPHEN 325 MG TAB PO PRN (21:46)
[2022-06-02] MEDS: LEVOTHYROXINE SODIUM 75 MCG TABLET PO SCH (06:11)
[2022-06-02] MEDS: ASPIRIN 81 MG ECTAB PO SCH (08:28)
[2022-06-02] MEDS: CHOLECALCIFEROL 1,000 UNITS 25 MCG TAB PO SCH (08:28)
[2022-06-02] MEDS: ENOXAPARIN INJ 40 MG/0.4 ML SYR SQ SCH (08:28)
[2022-06-02] MEDS: CITALOPRAM 20 MG TAB PO SCH (08:28)
[2022-06-02] MEDS: lisinopril 10 MG TAB PO SCH (08:28)
[2022-06-02] MEDS: ACETAMINOPHEN 325 MG TAB PO PRN (08:31)
--- NOTE | 2022-06-02 16:45 | Discharge Summary ---
Date of Service June 02, 2022 Admission HPI Per Admitting Provider 81 YOF with medical history of: osteopenia, DM II controlled, Depression, HTN, Hypothyroidism, HLD, Cardiomyopathy, sinus bradycardia, abnormal EST with mild to moderate non-obstructive CAD. Patient comes to the EMD today for evaluation of worsening pain to her left knee and right arm. The patient reports that her injuries occurred following a collapse while at the grocery store yesterday. Patient states that she was leaving the grocery store and when she got to just outside and went to take her groceries out of the cart and go to the car and then woke up on the ground with people around her. She couldn't get up because her knee and arm hurt. Her daughter came and picked her up and she declined to come to the hospital yesterday. Patient has recollection of how she ended up on the ground and denies any dizziness of pre-syncope feelings or spinning. She has felt well over the past week and no recent illness. In the EMD the patient had routine blood work completed to include UA. She had CT scan of her head, face, and cervical spine completed, and chest and knee x-rays completed. She is noted to have acute minimally distracted/displaced left patella fracture, nose fracture, and right lateral epicondyle fracture. She was splinted to her right arm and immobilizer placed to her left knee. It was felt she would need rehab for her injuries, and there are no places that have a bed at this time. Hospitalist service was consulted for admission. Pain is controlled. Will place on telemetry overnight follow for arrhythmia, obtain ECHO with her Cardiomyopathy history. Consult Orthopaedics for splinting and follow up coordination. COVID test on admission is: NEGATIVE Principal Diagnosis Fall, nasal bone fracture, Right elbow fracture/sprain, left patellar fracture Discharge Exam Constitutional WD/WN, vitals as above Eyes + anicteric sclerae, EOM intact bilaterally and + periorbital abnormality (Periorbital ecchymosis bilaterally) ENMT external ear and nose normal, oropharynx normal (With ecchymosis on cheeks b ilaterally) Neck trachea midline, no thyromegaly Respiratory normal respiratory effort, lungs clear to auscultation Cardiovascular RRR, no murmur, no edema Chest (Breasts) Chest: normal inspection of chest Gastrointestinal (Abdomen) normal bowel sounds, soft, nontender, no hepatosplenomegaly Musculoskeletal Extremities: + extremities abnormal to inspection (RU E in posterior splint with Sandor wrap, LUE in knee immobilizer, distal NVI), no cyanosis and no clubbing Skin no rashes, warm and dry Neurologic moves all extremities and awake; no focal motor deficits Psychiatric A+Ox3, euthymic affect Lymphatic no lymphedema Discharge Data Allergies Allergy/AdvReac Type Severity Reaction Status Date / Time adhesive Allergy Unknown ITCHY,RED Verified 05/28/22 15:34 SKIN WITH RASH lactose Allergy Unknown diarrhea Verified 05/28/22 15:34 penicillin V Allergy Unknown HIVES Verified 05/28/22 15:34 Consultations 05/28/22 14:05 ED Decision to Admit Stat 05/28/22 16:44 Consult Orthopedic Surgery Routine Ordered Studies 05/28/22 08:13 CT cervical spine wo con Stat CT facial bones wo con Stat 05/28/22 08:15 CT head/brain wo con Stat Hospital Course (1) Syncope: Syncope with collapse resulting in below injuries. Occurred while bending over to get something off the ground-possibly vasovagal versus orthostatic although orthostatics negative after admission Not anemic, no renal failure or dehydration - is without recollection of event -No events on telemetry, echo with preserved EF, no regional wall motion abnormalities, no valvular abnormalities, mild pulmonary hypertension with RVSP 43 mmHg - sinus margarita without ECG changes -held spironolactone, but now restart on discharge - continue ACEi - recommend 30 day cardiac event monitor after discharge (2) Fracture of lateral epicondyle of right humerus: Splint with sling- remains with posterior splint pain control with tylenol only as she is no longer having any pain and doesn't require anything stronger - ortho consult appreciated- follow up with ortho 1 week for re-eval and possible conversion to hinged brace - Platform walker is ordered- safe to weight bear on elbow with ortho recs f/u with Ortho later this week (3) Closed fracture of left patella: with knee immobilizer in place- keep immobilizer on while out of bed and always with weight bearing ortho consulted to follow effusion and follow up - remain with immobilizer brace - follow up with ortho 1 week - DVT prophylaxis while at rehab recommended by ortho- provide at discharge with Lovenox for 9 more days for a total of 2 weeks DVT prophylaxis (4) Nasal fracture: with patent nasal passages and without other orbital fractures - consider ent follow up after acute swelling decreased for eval if setting needed -No septal hematoma present so no prophylactic antibiotics needed -f/u with ENT after discharge within 1 week (5) Vitamin D deficiency: continue vitamin d (6) Osteopenia: continue alendronate (7) Sleep apnea: CPAP of 7 at night, however with her nasal fracture and facial bruising will not be able to wear will place on nasal cannula at night for hypoxia if needed (8) Cardiomyopathy: Repeat ECHO with improved EF from previous - now with EF normal at 55-60% and noral LV size with no RWMA - no events on telemetry for 48 hours- transition to medical floor - abnormal stress echo in past done and cath with non obstructive CAD - ok to restart Spironolactone on discharge - remains on ACEi 10 mg BID (9) Hypertension: continue ACEi hold spironolactone (10) Hypothyroidism: continue synthroid TSH here normal (11) Bradycardia: Chronic and stable without hemodynamic instability - BB in the past discontinued and remains with SB. (12) Diabetes type 2, controlled: reported as well controlled not on agent at home - no intervention needed while in house to this point (13) Headache: 05/30 patient reports "fuzzy vision" with headache bifrontal upon awakening - patient was given Tylenol and both have resolved - Patient has no increase in swelling or edema to the left eye - neurological exam intact, visual acuity intact, and EOM are intact - discussed with patient CTA of the head and neck and she declined - She does report of history of migraine and has been associated with blurry vision and photophobia - no other episode noted since that time Plan DVT prophylaxis-Lovenox 40 Mg SQ once daily-we will continue after discharge for 9 more days Disposition-dc to SNF [facility] Total Time Total Time Spent Total Time Spent (In Minutes): 35 min Discharge Plan Discharge Items Patient Disposition: Transfer Detention Fac Reason For Visit: FALL WITH FRACTURE-EVAL FOR REHAB PLACEMENT Discharge Diagnosis: Syncope, nasal bone fracture,right elbow fracture/sprain, left patellar fracture Condition on Discharge: Fair Activity: As commented below Bathing: No limitations Exercise/Sports: Gradually increase as tolerated Exercise Comment: with PT/OT Weightbearing: Left weightbearing Weightbearing Comment: as tolerated on LLE; RUE weight bear as tolerated with platform walker Non-emergency contact: Primary Care Provider and Surgeon Call non-emergency contact if: you have any medication questions, your symptoms worsen and your pain is not controlled Follow-up/Referrals: Linus Hunt MD [Primary Care Provider] - (Follow up within 1-2 weeks after discharge from rehab) Barbara Monroy MD [Physician] - (Follow up within 1 week for nasal bone fracture) Solo Lancaster MD [Surgeon] - (Follow up within 3-4 days.) Diet: Carb Consistent or DM2 Addtl Attending Provider Instructions: Keep your right arm in the splint and left leg in the knee immobilizer until seen by Orthopedics in follow up. You passed out possibly due to a "vasovagal" episode. Your cardiac workup was negative thus far and your spironolactone was held. This can be restarted now and it is recommended that you have a 30 day cardiac event monitor to look for any arrhythmias of the heart that could have caused you to pass out. The rehab can set this up for you. Pending Studies at Discharge: No Stand-Alone Forms: My [facility] Skilled Items Patient informed of condition?: Yes DNR: Yes Discharge Level of Care: Skilled Communicable Disease: No Discharge Prognosis: Improving Lines: None Urinary Catheter: No Medications and DC Order Prescriptions: New acetaminophen 325 mg Tablet 650 mg PO Q4H PRN (Reason: pain) Qty: 60 0RF enoxaparin [Lovenox] 40 mg/0.4 mL Syringe 40 mg subcut QAM 9 Days Qty: 3.6 0RF Continued citalopram 20 mg tablet 30 mg PO DAILY Qty: 135 3RF aspirin 325 mg tablet 325 mg PO DAILY Qty: 30 2RF simvastatin 80 mg tablet 80 mg PO HS Qty: 90 3RF levothyroxine 75 mcg tablet 75 mcg PO DAILY Qty: 90 3RF spironolactone 25 mg tablet 25 mg PO DAILY Qty: 90 3RF alendronate 35 mg tablet 35 mg PO .COMPLEX Qty: 4 11RF Rx Instructions: 35 mg PO once weekly; albuterol sulfate [Ventolin HFA] 90 mcg/actuation HFA aerosol inhaler 2 puff inhalation Q6H PRN (Reason: shortness of breath or wheezing) Qty: 8.5 11RF Centrum Silver 0.4-300-250 mg-mcg-mcg tablet 1 tab PO DAILY cholecalciferol (vitamin D3) 2,000 unit capsule 4,000 units PO DAILY Qty: 30 0RF lisinopril 10 mg tablet 10 mg PO BID Qty: 60 0RF Discharge Orders: Discharge Order (Routine); Ordered 06/02/22 Ordered By: Qi Dawson/Other Patient Handouts: Reducing Knee Pain and Swelling, Understanding a Humerus Fracture, ED Nose Fracture, with X-Ray, ED Patella Fracture Admission Data Admit Date/Time: 05/28/22 15:07 Attending Provider: Qi Johnson Admit Provider: Lalit Sotomayor Primary Care Provider: Linus Hunt Other Providers: [facility] ; [facility] ; Lalit Sotomayor ; Anjum Sanchez Other Interventions: Discharge Summary Assessment (RN) Last Done: 06/02/22 11:01 Coding Level of Care Code D/C DAY MANAGEMENT >30 MINS Diagnoses Syncope R55 Fracture of lateral epicondyle of right humerus S42.431A Closed fracture of left patella S82.002A Nasal fracture S02.2XXA Vitamin D deficiency E55.9 Osteopenia M85.80 Sleep apnea G47.30 Cardiomyopathy I42.9 Hypertension I10 Hypothyroidism E03.9 Bradycardia R00.1 Diabetes type 2, controlled E11.9 Headache R51.9
--- NOTE | 2022-06-09 13:28 | Coding Query ---
CODING QUERY To promote full compliance with coding requirements relating to patient care, provider participation is requested in all cases of adolescent specialist uncertainty. Please assist us with the question(s) below: Coding Question(s): Please specify below, in your clinical opinion, the diagnosis most responsible for the Inpatient admission. ( ) most likely Syncope. Please specify further, the most likely cause of Syncope: ( ) vasovagal syncope ( ) arrhythmia ( ) other: Please Specify ( ) unknown most likely cause ( ) most likely due to fractures, injuries ( ) most likely due to Fall with recent fall and the reason for the fall was investigated ( ) most likely due to Other: Please Specify Physician's Response(s): please refer this to the physicians that cared for the patient during her hospitalization Thank you Carlita Shipley Principal Diagnosis: "that condition established after study, to be chiefly responsible for occasioning the admission of the patient to the hospital for care." Co-Existing Principal Diagnosis: "when two or more diagnoses equally meet the criteria for principal diagnosis as determined by the circumstances of admission, diagnostic work up, and/or therapy provided, and the Alphabetic Index, Tabular List, or another coding guideline does not provide sequencing direction, any one of the diagnoses may be sequenced first." "When the physician has documented what appears to be a current diagnosis in the body of the record, but has not included the diagnosis in the final diagnostic statement, the physician should be asked whether the diagnosis should be added." (Source Coding Clinic 2 QTR90. p3-4) JULEE
== END 2022-06-02 18:00 ==
LOC: ED 07:36 → INTOOBSV 15:07 → SUATTDRO 15:07 → EDINP 15:07 → 2N 17:05